=== PATIENT | female | born 1975 | race Caucasian/White ===

== ENCOUNTER 2018-07-30 17:47 | Inpatient (IN) | payer BC ==
[~2018-07-30 17:47] MED LIST: ISOVUE-370 76%-LOCM 1 ML ONE
[2018-07-30 19:05] LABS: #Basophils 0.1 thou/uL (0.0-0.2); #Eosinphils 0.1 thou/uL (0.0-0.7); #Lymphocytes 3.3 thou/uL (1.20-3.40); #Monocytes 0.6 thou/uL (0.11-0.59); #Neutrophils 5.8 thou/uL (1.40-6.50); %Basophils 1.2 % (0.0-1.0); %Eosinophils 0.8 % (0.0-10.0); Hemoglobin 13.8 g/dL (12.0-16.0); Mean Corpuscular HGB CONC 32.9 g/dL (32.0-36.0); Mean Corpuscular Hemoglobin 31.4 pg (27.0-31.0); Mean Corpuscular Volume 95.4 fL (78.0-98.0); Mean Platelet Volume 6.7 fL (7.4-10.4); Platelet Count 345 thou/uL (130-400); RBC Distribution Width 12.2 % (11.5-14.5); Red Blood Cell (RBC) Count 4.38 mill/uL (4.20-5.40); White Blood Cell (WBC) Count 9.8 thou/uL (4.8-10.8)
[2018-07-30 19:33] LABS: ALT (SGPT) 33 U/L (8-55); AST (SGOT) 24 U/L (5-34); Albumin 4.2 g/dL (3.5-5.0); Alkaline Phosphatase 108 U/L (40-150); Anion Gap 12 mmol/L (10-20); BUN (Urea Nitrogen) 10 mg/dL (7.0-18.7); Bilirubin, Total 0.2 mg/dL (0.2-1.2); CK (CPK) 48 U/L (29-168); Calc. Creatinine Clearance 0 mL/min (70-130); Calcium 9.6 mg/dL (7.8-10.44); Carbon Dioxide 25 mmol/L (22-29); Chloride 105 mmol/L (98-107); Estimated GFR-MDRD 71; Globulin 2.9 g/dL (2.4-3.5); Glucose 85 mg/dL (70-105); Lipase 61 U/L (8-78); Protein, Total 7.1 g/dL (6.0-8.3); Sodium 138 mmol/L (136-145)
[2018-07-30] MEDS ORDERED: Ondansetron PF 4 MG/2 ML Vial ONE ×2 (19:35→21:57)
[2018-07-30] MEDS ORDERED: Morphine 4 MG/ML VIAL ONE ×2 (19:35→21:10)
[2018-07-30 19:38] LABS: BHCG - Serum Negative (NEGATIVE); Pregs Control Background? CLEAR/WHITE (CLR/WHITE); Pregs Control Bar Appear? YES (CONTROL BAR)
[2018-07-30 20:00] LABS: Bilirubin Negative (Negative); Blood, Urine Negative (Negative); Clarity CLEAR (Clear); Glucose, Urine (Dipstick) Negative (Negative); Leukocyte Negative (Negative); Nitrite Negative (Negative); Protein, Urine (Dipstick) Negative (Neg-Trace); Specific Gravity, Urine 1.024 (1.002-1.036); Urobilinogen 0.2 mg/dL (0.2-1.0)
[2018-07-30] MEDS ORDERED: metroNIDAZOLE 500 MG/100 ML BAG ONE (21:10)
[2018-07-30] MEDS ORDERED: Dexamethasone 10 MG/ML VIAL ONE (21:10)
--- NOTE | 2018-07-30 21:18 | CT ---
CONTRAST ENHANCED CT IMAGES ABDOMEN AND PELVIS: 07/30/18 IV contrast was given. The lung bases are unremarkable. No evidence of free intraperitoneal air seen. The liver and spleen are unremarkable. The gallbladder has been surgically removed. The pancreas is unremarkable. The adrenal glands unremarkable. The kidneys are unremarkable. The abdominal aorta is unremarkable. Abnormally thickened and inflamed loops of jejunum visualized. T here appears to be some fecal debris in some of these thickened jejunal loops. More distally, the small bowel is unremarkable. The patient has had partial bowel resection at the il eocecal junction. Some thickened and enhancing loops of transverse colon as well as the splenic flexu re is seen. this is compatible with colitis. Additional area of thickening and enhancement seen in th e descending colon, sigmoid colon and rectum. Additional areas of mesenteric lymph node enlargement seen in the upper to mid right abdomen. IMPRESSION: 1. Jejunal thickening compatible with inflammatory change. 2. Areas of colonic enhancement compatible with colitis. POS: NOEL
[2018-07-30] MEDS ORDERED: Sodium Chloride 0.9% 1,000 ML IV SCH (23:45)
[2018-07-30] MEDS ORDERED: Ondansetron ODT 4 MG TAB SL PRN (23:46)
[2018-07-30] MEDS ORDERED: Morphine 4 MG/ML VIAL SLOW IVP PRN (23:47)
[2018-07-31] MEDS ORDERED: Acetaminophen 325 MG TAB PO PRN (01:20)
[2018-07-31] MEDS ORDERED: Acetaminophen 650 MG Suppository PR PRN (01:20)
[2018-07-31] MEDS: Promethazine 25 MG TAB PO PRN ×4 (02:02→22:47)
[2018-07-31] MEDS: Morphine 4 MG/ML VIAL SLOW IVP PRN ×4 (02:02→12:28)
[2018-07-31 02:58] VITALS: BMI 25.5
--- NOTE | 2018-07-31 04:20 | HP ---
REASON FOR ADMISSION: Crohn's flare and colitis. HISTORY OF PRESENT ILLNESS: Ms. Patton is a 43-year-old woman with a background history of Crohn's disease who has undergone bowel resection x2, who presented today complaining of fever and abdominal pain for the last five days. She reports having blood in her stool. She was seen at an urgent care center on Thursday and workup was unremarkable. The patient states that it has been quite sometime since the last time she had a flare of her Crohn's. She states typically her pain is difficult to control as is her nausea. She has felt nauseous for few days and denies having any vomiting. She states it is unusual for her to vomit and at times she will experience dry heaving. She states the pain is diffuse throughout her entire abdomen and she rates her pain as 8/10 in severity when she first came in. At this present time, her pain is approximately 6/10 in severity. She states her abdomen feels bloated. 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 Labs and urinalysis done in ED were unremarkable. CT of the abdomen did confirm the presence of colitis. She was therefore started on Levaquin and metronidazole as well as Decadron. She has been receiving IV fluids. For her pain, she was given 4 mg of morphine. REVIEW OF SYSTEMS: The patient again states she has felt very warm. She denies having any chills or night sweats. Reports having occasional blood in her stools as mentioned above. She states she often suffers from loose stools and states that she tends to have postprandial diarrhea at baseline. She denies having any chest pain, palpitations, or shortness of breath. No skin changes. No urinary symptoms. She does complain of headache and states that she suffers from migraines. No visual disturbances or speech disturbances. PAST MEDICAL HISTORY: 1. Crohn's. 2. Herniated disks. 3. Anxiety. FAMILY HISTORY:Reviewed and no contributory for current presentation. PAST SURGICAL HISTORY: 1. Small-bowel resection x2. 2. Mass removed from the right breast. 3. Mass removed from urethra. 4. Right knee surgery. 5. Hysterectomy. ALLERGIES: IMITREX. PATIENT STATES IT TENDS TO MAKE HER MIGRAINES WORSE. CURRENT MEDICATIONS: 1. Zofran ODT. 2. Methocarbamol 750 mg two times a day. 3. Lexapro 20 mg once daily. 4. Lorazepam 0.5 mg every evening. 5. Tramadol 50 to 100 mg p.o. as needed. PHYSICAL EXAMINATION: GENERAL: The patient appears well developed, well nourished and appears to be in mild discomfort. VITAL SIGNS: Temperature 98.1, pulse 88, respirations 18, blood pressure 119/76 , and O2 saturation 96% on room air. HEENT: Normocephalic and atraumatic. Pupils are equal, round, and reactive to light. Sclerae without icterus. Oropharynx is clear. NECK: Supple without lymphadenopathy. Full range of motion. CARDIAC: Regular rate and rhythm. LUNGS: Clear to auscultation, without wheezes, rales, or rhonchi. ABDOMEN: Soft, but tender with mild percussion all throughout. No rigidity or guarding. EXTREMITIES: No swelling, edema, or calf tenderness. LABORATORY DATA: White blood count 9.8, hemoglobin 13.8, and platelets 345. Sodium 138, potassium 4.0, BUN 10, creatinine 0.87, and GFR 71. LFTs are unremarkable. Lactic acid 1. Lipase 61. Serum negative. Urinalysis unremarkable. IMAGING DATA: Jejunal thickening compatible with inflammatory change. Areas of colonic enhancement compatible with colitis. IMPRESSION AND PLAN: Ms. Patton is a pleasant 43-year-old woman with a history of Crohn's, who has undergone small bowel resections in the past, and is being admitted for Crohn's flare and CT confirmed colitis. We will continue IV antibiotics and IV hydration. We will also give prednisone 40 mg daily. Consult placed to Gastroenterology for further recommendations. At this present time, the patient complains of 6/10 pain. We will give morphine 2 mg IV q.2 hours as needed for pain. For her nausea, the patient states she tends to respond to Zofran and Phenergan , which have been prescribed. For deep venous thrombosis prophylaxis, we will place mechanical SCDs. We will hold any anticoagulation given recent bloody stools. Patient's case was discussed with Dr. Taveras, who agrees with the plan of care as described above. Case discussed with DION, agree with assessment and plan. Job ID: [id number] [facility]
[2018-07-31] MEDS: Sodium Chloride 0.9% 1,000 ML IV SCH ×2 (04:50→08:40)
[2018-07-31] MEDS: metroNIDAZOLE 500 MG in Premix Bag 1 BAG IVPB SCH ×3 (05:01→22:47)
[2018-07-31 07:27] LABS: #Lymphocytes 1.2 thou/uL (1.20-3.40); #Monocytes 0.1 thou/uL (0.11-0.59); #Neutrophils 7.8 thou/uL (1.40-6.50); %Basophils 0.2 % (0.0-1.0); %Lymphocytes 13.1 % (21.0-51.0); %Monocytes 0.8 % (0.0-10.0); %Neutrophils 85.9 % (42.0-75.0); Hemoglobin 12.5 g/dL (12.0-16.0); Mean Corpuscular HGB CONC 33.7 g/dL (32.0-36.0); Mean Corpuscular Hemoglobin 31.9 pg (27.0-31.0); Mean Corpuscular Volume 94.7 fL (78.0-98.0); Mean Platelet Volume 6.7 fL (7.4-10.4); Platelet Count 295 thou/uL (130-400); RBC Distribution Width 12.1 % (11.5-14.5); Red Blood Cell (RBC) Count 3.91 mill/uL (4.20-5.40); White Blood Cell (WBC) Count 9.1 thou/uL (4.8-10.8)
[2018-07-31 07:45] LABS: Anion Gap 11 mmol/L (10-20); BUN (Urea Nitrogen) 8 mg/dL (7.0-18.7); Calc. Creatinine Clearance 118 mL/min (70-130); Calcium 8.9 mg/dL (7.8-10.44); Carbon Dioxide 23 mmol/L (22-29); Chloride 106 mmol/L (98-107); Estimated GFR-MDRD 89; Glucose 118 mg/dL (70-105); Potassium 4.3 mmol/L (3.5-5.1); Sodium 136 mmol/L (136-145)
[2018-07-31] MEDS: Dicyclomine 10 MG/5 ML UDCUP PO SCH ×4 (08:36→21:03)
[2018-07-31] MEDS: predniSONE 20 MG TAB PO SCH ×2 (08:37→15:56)
[2018-07-31] MEDS: Famotidine/PF 20 mg/2ml Vial SLOW IVP SCH ×2 (08:40→21:05)
[2018-07-31] MEDS: Ondansetron PF 4 MG/2 ML Vial IVP PRN ×2 (08:49→18:11)
[2018-07-31] MEDS ORDERED: FLUoxetine HCl 20 MG CAP PO SCH (09:00)
[2018-07-31] MEDS ORDERED: azaTHIOprine 50 MG TAB PO SCH (09:00)
[2018-07-31] MEDS ORDERED: methylPREDNISolone Sod Succ 40 MG VIAL IVP SCH (12:30)
--- NOTE | 2018-07-31 12:59 | PRG ---
DATE OF SERVICE: 07/31/2018 SUBJECTIVE: The patient is seen and examined at bedside. She has abdominal pain, which is rated at 7 at the time of my visit. No nausea. No vomiting. Also, she has neck pain, which is chronic. Apparently, she had some injections done by Pain Management doctor a month ago and she developed additional numbness in this area and the pain is quite substantial. OBJECTIVE: VITAL SIGNS: Blood pressure is 114/64, pulse is 62, temperature is 98.1, respiratory rate is 18, O2 saturation is 99% on room air. HEENT: Her pupils are responding to light properly. Sclerae are nonicteric. Oral mucosa is moist. LUNGS: Clear. HEART: S1, S2 normal. ABDOMEN: Soft. Tender to palpation, mostly on the right side and in the center. Bowel sounds are present. No organomegaly. EXTREMITIES: No clubbing, cyanosis, or edema. NEUROLOGIC: She is alert and oriented x4. There is no any motor or sensory deficits. Cranial nerves are intact. LABORATORY DATA: Showed white count of 9.1, hemoglobin 12.5, hematocrit 37.0, platelet count is 295,000. Electrolytes within normal limits. BUN 8, creatinine 0.71, glucose 118, and calcium 8.9. Microbiology showed no growth x2 blood cultures. IMPRESSION: 1. Abdominal pain with positive CT findings for inflammatory process, which is most likely exacerbation of her Crohn disease since she has a history of the diagnosis. 2. Neck pain secondary to herniated discs, status post injections by Pain Management MD. 3. Anxiety. PLAN: Plan is to switch her from morphine to fentanyl 50 mcg every 4 hours p.r.n. as needed. Discontinue morphine. Start Solu-Medrol 40 every 6 hours. GI software sales consultant was called and he is on his way to see the patient. He will make decision about further management of her case. Also, we are going to restart her home medications, which is methocarbamol. We will continue metronidazole and levofloxacin. Job ID: [id number]
[2018-07-31] MEDS: Fentanyl 100 MCG/2 ML VIAL SLOW IVP PRN ×3 (15:46→21:15)
[2018-07-31] MEDS: methylPREDNISolone Sod Succ 40 MG VIAL IVP SCH (15:54)
[2018-07-31] MEDS: Methocarbamol 500 MG TAB PO SCH (21:04)
[2018-08-01] MEDS: methylPREDNISolone Sod Succ 40 MG VIAL IVP SCH ×5 (00:40→23:48)
[2018-08-01] MEDS: Sodium Chloride 0.9% 1,000 ML IV SCH ×3 (00:41→23:46)
[2018-08-01] MEDS: Fentanyl 100 MCG/2 ML VIAL SLOW IVP PRN ×7 (02:43→23:50)
[2018-08-01] MEDS: Ondansetron PF 4 MG/2 ML Vial IVP PRN ×3 (03:03→20:11)
[2018-08-01] MEDS: metroNIDAZOLE 500 MG in Premix Bag 1 BAG IVPB SCH ×3 (06:09→22:57)
[2018-08-01] MEDS: Dicyclomine 10 MG/5 ML UDCUP PO SCH ×2 (08:41→11:16)
[2018-08-01] MEDS: Methocarbamol 500 MG TAB PO SCH ×2 (08:41→19:47)
[2018-08-01] MEDS: Famotidine/PF 20 mg/2ml Vial SLOW IVP SCH (08:41)
--- NOTE | 2018-08-01 10:30 | PRG ---
DATE OF SERVICE: 08/01/2018 SUBJECTIVE: The patient was seen and examined at the bedside. She had some full liquid diet last night and having more abdominal pain after that. She is waiting for breakfast as we speak. No nausea. No vomiting. OBJECTIVE: VITAL SIGNS: Blood pressure is 111/64, temperature 98.2, pulse 62, respirations 16, O2 saturation is 97% on room air. HEENT: Head is atraumatic and normocephalic. Eyes are PERRLA. Sclerae are nonicteric. Oral mucosa is slightly dry. NECK: Supple. LUNGS: Clear. HEART: S1, S2 normal. No S3. No S4. No any murmur. ABDOMEN: Soft, but tender on palpation mostly in the right side of the abdomen and in the lower parts. No guarding. No masses. EXTREMITIES: No clubbing, cyanosis, or edema. NEUROLOGICAL: She is alert and oriented x4. There is no any motor or sensory deficits present. Cranial nerves are intact. LABORATORY DATA: None today. IMPRESSION: 1. Abdominal pain with positive CT findings for inflammatory process, suspected Crohn disease exacerbation. 2. Neck pain secondary to herniated discs, status post injections by Pain Management MD. 3. Anxiety. DISCUSSION: The patient is doing better in terms of pain control. She is on fentanyl IV push now every 4 hours. She is on Solu-Medrol 40 every 6 hours. She was seen by Dr. Jang for GI consultation. We are waiting for the report from his visit. We will continue her both antibiotics metronidazole and levofloxacin and continue IV fluids and keep her on full liquid diet. Job ID: [id number]
[2018-08-01] MEDS: Promethazine 25 MG TAB PO PRN ×2 (11:17→17:41)
[2018-08-01] MEDS ORDERED: Hyoscyamine Sulfate SL 0.125 mg Tablet SL PRN (14:36)
[2018-08-01] MEDS ORDERED: Sodium Chloride 0.9% (PF) 10 ML VIAL FS PRN (14:46)
--- NOTE | 2018-08-01 14:56 | PRG ---
DATE OF SERVICE: 08/01/2018 SUBJECTIVE: Ms. Patton states her diarrhea is better. She denies any bleeding since yesterday, but she still has upper abdominal pain. Nurses note she requests IV pain injections. She reports the Bentyl, she is taking, but it taste really bad. She asked when she can go home. MEDICATIONS: 1. Tylenol p.r.n. 2. Bentyl p.r.n. 3. Pepcid. 4. Fentanyl p.r.n. 5. Levofloxacin. 6. Robaxin. 7. Solu-Medrol 40 mg IV q.6. 8. Flagyl 500 IV q.8h. 9. Zofran p.r.n. 10. Phenergan p.r.n. 11. Normal saline at 100. OBJECTIVE: VITAL SIGNS: Temperature is 98.2. She has been afebrile since admission. Pulse is 62, blood pressure is 111/64. GENERAL: She is resting in bed. She is tearful at times. HEENT: Oropharynx is without lesions. NECK: Supple. No adenopathy. LUNGS: Clear. HEART: Regular rate and rhythm. No rubs, clicks, or murmurs. ABDOMEN: Soft. She has some voluntary guarding, but no rebound. Bowel sounds are positive. EXTREMITIES: No clubbing, cyanosis, or edema. Blood cultures 07/30/2018, negative x2. No CBC today. No BMP today. ASSESSMENT: Jejunal inflammation and possibly some proximal colon inflammation. This could be enteritis as she had a sick relative or could be Crohn's. RECOMMENDATIONS: 1. Continue antibiotics and steroids. 2. We will check CBC labs and inflammatory markers tomorrow. If these are improving, I would stop the antibiotics. 3. Wean off her narcotics. These are not appropriate for abdominal pain with inflammatory bowel disease unless something surgical amiss which there is not in the setting and we will put her on some Levsin sublingual instead of Bentyl. I will follow along with you. Job ID: [id number]
[2018-08-01] MEDS ORDERED: Ondansetron ODT 4 MG TAB SL PRN (19:13)
--- NOTE | 2018-08-01 19:27 | CON ---
DATE OF CONSULTATION: 07/31/2018 REASON FOR CONSULTATION: This is requested by the hospitalist admitting service, Dr. Hannah, who is attending now in management of Crohn disease, acute exacerbation of pain and bleeding. HISTORY OF PRESENT ILLNESS: Ms. Patton is a 43-year-old female, who was admitted to the hospital at 3 o'clock this morning. She apparently presented to the hospital yesterday at around 6:00 p.m. because she was having abdominal pain, fever, and history of Crohn disease. She reports that about a week ago, she became sick with some sore throat, a little bit of nausea and fever. At that time, she is having no diarrhea. She had a sick grandchild, who had a GI illness that she thought She ultimately went over to the [facility] in [place], where she had tested for the flu and strep and this was negative. As her symptoms seemed to progress daily and begin to have more GI symptoms, she began to worry this is her Crohn disease. She began to have colicky cramping almost like contractions and then some diarrhea and nausea, she had a little bit of rectal bleeding as well. Ultimately, the pain got worse and worse. She decided to come to the emergency room. She did not check her temperature at home, but reports subjective fever. Additionally, she notes typically when her Crohn disease flare, she will get a little bit of redness and inflammation in her eye on the right side, which she has noted and also she will get some little punctate red spots on her skin and on her arms that she is noted. Presently, she is resting in bed. She is n.p.o. She has had imaging, was given Levaquin, metronidazole, Flagyl, morphine, one dose of Decadron, 1 L of fluids, and some morphine in the emergency room. Presently, she is being Pepcid, Levaquin, Flagyl, Robaxin, Solu-Medrol 40 IV q.6, Zofran, and Bentyl. PAST MEDICAL HISTORY: Chronic back pain, neck pain, Crohn disease. She reports she was diagnosed about 2002. She has been cared by Dr. Odom here locally, mainly disease in the distal ileum, but there was also some concern of proximal colon involvement and even small bowel involved in the past per the patient. For a long time, she was on Remicade, but then she working as well, she was getting alopecia. She started on Cimzia, but that gave her rash. She notes that at some point in time, she was started on Humira and that was last time she was in the hospital here in 2012. Ultimately, she states she was sent to see Dr. Brandyn Almonte in [place], [place], where she underwent bowel resection, small intestine. She thinks this may have been her jejunum, but she is not certain. After that, she was on Entyvio until April 2017. Apparently, she was being treated by Dr. Almonte in [place] when she became employed at [employer], she had to go see the gastrologist in [place] sometime in late 2016, her job is changed again and she has not been back to see them. She estimates she has not been on any medications since then. She reportedly had no flares since then. Past medical history otherwise, anxiety. PAST SURGICAL HISTORY: Small bowel resection x2, benign mass removed from right breast, benign mass from urethra, knee surgery, and hysterectomy. She had injections in her C3-C4 of the neck and also nerve ablation there recently. ALLERGIES: IMITREX, METAXALONE, AND SUMATRIPTAN. MEDICATIONS: At home: 1. Zofran ODT. 2. Methocarbamol. 3. Lexapro. 4. Lorazepam. 5. Tramadol. Present medications in the hospital: 1. Acetaminophen. 2. Imuran, it has been discontinued actually. 3. Bentyl. 4. Pepcid. 5. Fentanyl p.r.n. 6. Levofloxacin. 7. Methocarbamol. 8. Methylprednisolone 40 IV q.6. 9. Flagyl 500 IV q.8. 10. P.r.n. morphine. 11. Sodium chloride . 12. P.r.n. Zofran. 13. P.r.n. Phenergan. REVIEW OF SYSTEMS: CONSTITUTIONAL: No chills or night sweats. Occasional blood in the stool this morning. Tendency towards postprandial diarrhea. Extraintestinal manifestations of Crohn disease as per HPI. No history of recent melena, hematemesis, fever, or specific joint pains. No history of liver disease. She does have history of migraines. No chest pain, shortness of breath, or dyspnea on exertion. NEUROLOGIC: Negative. RESPIRATORY: Negative. : Negative. BLUNGER: Negative. SOCIAL HISTORY: She employed here at [employer]. She does not drink. She does not smoke and has not smoked in the past. PHYSICAL EXAMINATION: VITAL SIGNS: Temperature is 98.1. She has been afebrile since admission. Pulse is 62 and blood pressure 114/64. GENERAL: The patient is resting comfortably in bed. She is in no distress. She would relate pertinent facts for history. HEENT: Conjunctivae are clear. Oropharynx without lesions. NECK: Supple. No adenopathy. LUNGS: Clear. HEART: Regular rate and rhythm. No rubs, gallops, or murmurs. ABDOMEN: Soft. Some mild tenderness diffusely, but no rebound. No guarding. No hernias were noted. EXTREMITIES: No clubbing, cyanosis, or edema. SKIN: Without rashes or lesions. NEUROLOGIC: Grossly intact. LABORATORY DATA: White count 9.1, that was 9.8 last night. Hemoglobin is 12.5, platelet count 295. Comprehensive metabolic profile is normal on 07/30/2018. Urinalysis was negative on 07/30/2018. Blood cultures are pending. The stool studies are present. CT scan of the abdomen and pelvis performed 07/30/2018, showed jejunal thickening, nonspecific inflammation, some areas of colonic enhancement consistent with colitis, transverse colon, as well as splenic flexure region. I have reviewed these films personally. ASSESSMENT: History of Crohn disease with no medications for over a year in the past. She had become refractory to Remicade and had reactions to Cimzia and Humira. She underwent a surgery in [place] and then with 2 years of bowel resected and then she was placed on Entyvio. She reports it over the last few weeks, but it seems that since she has been stop seeing the gastrologist at [employer] in [place], where she transferred her care and she began to work for them, that she has been doing pretty well because she has not been on any medications since April 2017 by her report. Now, she has had exacerbation of fever, some URI symptoms followed by some diarrhea and abdominal pain, which brought her to the emergency room. She has some possible thickening in her proximal jejunum with no signs of obstruction and it was reportedly some questionable transverse colon thickening and possibly some mild thickening in the splenic flexure. There is no stranding of fat in these areas. There is no pericolonic fat stranding or inflammation. The anastomosis of the colon, ileum does not appear acutely inflamed. There is no free pelvic fluid. Differential diagnosis would include gastroenteritis or viral, exacerbation of her Crohn disease. RECOMMENDATIONS: At this time, I agree with antibiotics and steroids. I will go and get some stool studies on her. We will continue to observe her with you. We are going to place her on clear liquids. Job ID: [id number]
[2018-08-01] MEDS ORDERED: Enoxaparin Sodium 30 MG/0.3 ML SYRINGE SC SCH (21:00)
[2018-08-02] MEDS: metroNIDAZOLE 500 MG in Premix Bag 1 BAG IVPB SCH (05:44)
[2018-08-02] MEDS: methylPREDNISolone Sod Succ 40 MG VIAL IVP SCH ×2 (05:45→12:38)
[2018-08-02] MEDS: Ondansetron PF 4 MG/2 ML Vial IVP PRN (05:50)
[2018-08-02] MEDS: Sodium Chloride 0.9% 1,000 ML IV SCH ×2 (07:00→12:53)
[2018-08-02 08:08] VITALS: BP 130/79; TEMP 98
[2018-08-02 08:08] LABS: #Lymphocytes 1.2 thou/uL (1.20-3.40); #Monocytes 0.3 thou/uL (0.11-0.59); #Neutrophils 11.8 thou/uL (1.40-6.50); %Basophils 0.1 % (0.0-1.0); %Eosinophils 0.2 % (0.0-10.0); %Lymphocytes 9.2 % (21.0-51.0); %Monocytes 2.3 % (0.0-10.0); %Neutrophils 88.3 % (42.0-75.0); Hemoglobin 11.7 g/dL (12.0-16.0); Mean Corpuscular HGB CONC 32.4 g/dL (32.0-36.0); Mean Corpuscular Hemoglobin 31.1 pg (27.0-31.0); Mean Corpuscular Volume 95.9 fL (78.0-98.0); Platelet Count 298 thou/uL (130-400); RBC Distribution Width 12.3 % (11.5-14.5); Red Blood Cell (RBC) Count 3.77 mill/uL (4.20-5.40); White Blood Cell (WBC) Count 13.4 thou/uL (4.8-10.8)
[2018-08-02 08:24] LABS: Anion Gap 11 mmol/L (10-20); BUN (Urea Nitrogen) 9 mg/dL (7.0-18.7); CRP (Inflammatory) Less than 0.50 mg/dL (= or < 0.5); Calc. Creatinine Clearance 109 mL/min (70-130); Calcium 9.1 mg/dL (7.8-10.44); Carbon Dioxide 27 mmol/L (22-29); Chloride 106 mmol/L (98-107); Estimated GFR-MDRD 81; Glucose 123 mg/dL (70-105); Magnesium 1.9 mg/dL (1.6-2.6); Phosphorus 3.6 mg/dL (2.3-4.7); Potassium 3.8 mmol/L (3.5-5.1); Sodium 140 mmol/L (136-145)
[2018-08-02] MEDS ORDERED: Pantoprazole 40 MG VIAL IVP SCH (09:00)
[2018-08-02] MEDS: Methocarbamol 500 MG TAB PO SCH (09:23)
--- NOTE | 2018-08-02 11:20 | PRG ---
DATE OF SERVICE: 08/02/2018 SUBJECTIVE: The patient is seen and examined at the bedside. She complains about some abdominal pain. She was placed back on her clear liquids since she had some abdominal pain increase with full liquid diet. OBJECTIVE: VITAL SIGNS: Blood pressure is 130/79, pulse is 50, temperature is 98.0, respiratory rate is 16, O2 saturation is 97% on room air. HEENT: Head is atraumatic and normocephalic. Eyes are PERRLA. Sclerae are nonicteric. Oral mucosa is somewhat dry. NECK: Supple. LUNGS: Clear. HEART: S1, S2 normal. No S3. No S4. No any murmur. ABDOMEN: Relatively soft and there is some tenderness on deeper palpation in the mid portion of the right side of the abdomen. No guarding. No masses. EXTREMITIES: No clubbing, cyanosis, or edema. NEUROLOGICAL: She is alert and oriented x4. There is no any motor or sensory deficits present. Cranial nerves are intact. LABORATORY DATA: Labs showed white count of 13.4, hemoglobin 11.7, hematocrit 36.2, platelet count is 298,000. Normal electrolytes. BUN of 9, creatinine 0.77, CO2 27, glucose 123, CRP less than 0.5. Microbiology, blood cultures x2 negative at 48 hours. ASSESSMENT: 1. Crohn disease exacerbation. 2. Neck pain secondary to herniated disks, status post injections by pain management MD. 3. Anxiety. DISCUSSION: The patient's CRP came back low. Per GI recommendation, we are going to stop her both metronidazole and levofloxacin and we will stop her fentanyl. We will continue her IV steroids and she will stay on clear liquids for now until GI makes decision about advancing the diet. Job ID: [id number]
[2018-08-02] MEDS ORDERED: Escitalopram Oxalate 20 mg Tablet PO SCH ×2 (12:15→12:30)
[2018-08-02] MEDS: Promethazine 25 MG TAB PO PRN (12:38)
[2018-08-02] MEDS ORDERED: Lorazepam 0.5 MG TAB PO PRN (13:10)
--- NOTE | 2018-08-02 16:06 | PRG ---
DATE OF SERVICE: SUBJECTIVE: Ms. Patton is feeling better. Dr. Hannah restarted her escitalopram. She was tearful today and I noticed that yesterday as well. She is tolerating full liquids and really wants to go home. OBJECTIVE: VITAL SIGNS: She is afebrile. Vital signs had been stable. HEENT: Oropharynx, without lesions. There are no signs of thrush. LUNGS: Clear. HEART: Regular rate and rhythm. ABDOMEN: Soft and nontender. There is no rebound or guarding. LABORATORY DATA: White count 13.4, hemoglobin 11.7, and platelet count 298. Basic metabolic profile normal. CRP is less than 0.5. Sedimentation rate is 2. ASSESSMENT: 1. Admission with abdominal pain and some mild inflammation of the proximal jejunum and also proximal colon around her anastomosis. Now, after 3 days of IV steroids, symptoms markedly improved. She wants to go home today. I think that is not unreasonable. I have recommended a low-residue diet, steroid taper, and follow up with Dr. Odom, we have made her appointment. To return to the office on 08/18 to discuss reinstituting therapy she has been off for about a year and half probably needs to be on biologic therapy in light of previous surgical needs. She is agreeable to this plan. 2. Depression. She has been off her escitalopram, pretty tearful yesterday and today, Dr. Hannah restarted that today and this is probably going to help her a lot as well. We will plan steroid taper as directed. Follow up as noted above with Dr. Odom in about 2 weeks. Job ID: [id number]
[2018-08-02] MEDS ORDERED: Lorazepam 0.5 MG TAB PO SCH (21:00)
[2018-08-03] MEDS ORDERED: Escitalopram Oxalate 20 mg Tablet PO SCH ×2 (09:00)
--- NOTE | 2018-08-03 13:11 | DIS ---
DATE OF ADMISSION: 07/30/2018 DATE OF DISCHARGE: 08/02/2018 FINAL DIAGNOSES: 1. Abdominal pain, most likely secondary to Crohn disease exacerbation. 2. Neck pain secondary to herniated disk, status post injections by Pain Management MD. 3. Anxiety. 4. Depression. CONSULTANTS: Dr. Chirag Jang of Gastroenterology Service. HOSPITAL COURSE: The patient is a 43-year-old female with a background history of Crohn disease and bowel resection x2, who presented to the emergency room complaining of fever and abdominal pain for approximately 5 days prior to this admission. She reported having some blood in her stool. She was nauseated, but she did not have any vomiting. She had abdominal pain in a diffuse fashion throughout her entire abdomen and the pain was rated at 8 on a scale from 1-10 in severity. She felt bloated. A lab work and urinalysis were done in the emergency department were unremarkable. CT of the abdomen did confirm the presence of colitis. She was therefore started on Levaquin and metronidazole as well as on steroids IV along with IV fluids. She was given morphine and got admitted to the medical floor for further management of her pain and inflammatory process. The patient was seen by Dr. Jang for Gastroenterology evaluation, who recommended to continue IV steroids and antibiotics. She was kept on clear liquids, and once the diet was advanced to full liquid diet, she developed more pain and so we had to go back to clear liquids. She gradually felt better. Her CRP came back at 8.5. Her blood cultures x2 came back negative. Both antibiotics were stopped. She requested to go home. She was cleared by Dr. Jang for her to go home. She was discharged home in good condition with recommendation to stay on diet as tolerated and activities as tolerated. MEDICATIONS: At the time of discharge, 1. Prednisone tapering dose. 2. Lorazepam 0.5 mg at bedtime. 3. Lexapro 20 mg daily. 4. Zofran p.r.n. 5. Pantoprazole 40 mg daily. 6. Levsin 0.125 mg sublingual every 6 hours p.r.n. as needed. 7. Methocarbamol 750 mg twice a day. 8. Tramadol 25 mg q.i.d. p.r.n. She is scheduled to see Dr. Odom in the next 2 weeks. DESTINATION: Home. Job ID: [id number]
== END 2018-08-02 17:37 | disposition home or self-care (01) | DRG 387 ==
LOC: ERS 17:47 → T4-A 20:41
PROVIDERS: ADMIT Hospitalist; ATTEND Hospitalist
DX: K50.80 Crohn's disease of both small and large intestine without complications (principal); F41.9 Anxiety disorder, unspecified; M50.20 Other cervical disc displacement, unspecified cervical region; G89.29 Other chronic pain; F32.9 Major depressive disorder, single episode, unspecified; Z90.49 Acquired absence of other specified parts of digestive tract; Z98.890 Other specified postprocedural states; Z88.8 Allergy status to other drugs, medicaments and biological substances; Z90.710 Acquired absence of both cervix and uterus
CPT/HCPCS: 36415; 74177; 80048; 80053; 81003; 82550; 83605; 83690; 83735; 84100; 84703; 85025; 85652; 86140; 86850; 86900; 86901; 87040; 96361; 96365; 96375; 96376; C9113; J1100; J1650; J1956; J2270; J2405; J2920; J3010; J7500; Q0169; Q9966; S0028

== ENCOUNTER 2018-09-20 21:16 | Inpatient (IN) | payer BC ==
[2018-09-20 21:58] LABS: Bilirubin Negative (Negative); Blood, Urine Negative (Negative); Clarity CLEAR (Clear); Glucose, Urine (Dipstick) Negative (Negative); Leukocyte Negative (Negative); Nitrite Negative (Negative); Protein, Urine (Dipstick) Negative (Neg-Trace); Specific Gravity, Urine 1.013 (1.002-1.036); Urobilinogen 0.2 mg/dL (0.2-1.0); pH, Urine 5.5 (5.0-9.0)
[2018-09-20 22:14] LABS: #Lymphocytes 2.5 thou/uL (1.20-3.40); #Monocytes 0.5 thou/uL (0.11-0.59); %Eosinophils 0.1 % (0.0-10.0); %Lymphocytes 15.7 % (21.0-51.0); %Monocytes 3.3 % (0.0-10.0); %Neutrophils 80.8 % (42.0-75.0); Hemoglobin 13.7 g/dL (12.0-16.0); Mean Corpuscular HGB CONC 32.8 g/dL (32.0-36.0); Mean Corpuscular Volume 94.5 fL (78.0-98.0); Platelet Count 353 thou/uL (130-400); RBC Distribution Width 12.2 % (11.5-14.5); Red Blood Cell (RBC) Count 4.43 mill/uL (4.20-5.40)
[2018-09-20 22:37] LABS: ALT (SGPT) 21 U/L (8-55); AST (SGOT) 16 U/L (5-34); Albumin 4.3 g/dL (3.5-5.0); Alkaline Phosphatase 80 U/L (40-150); Anion Gap 14 mmol/L (10-20); BUN (Urea Nitrogen) 8 mg/dL (7.0-18.7); Bilirubin, Total 0.4 mg/dL (0.2-1.2); Calc. Creatinine Clearance 0 mL/min (70-130); Calcium 9.8 mg/dL (7.8-10.44); Carbon Dioxide 20 mmol/L (22-29); Chloride 105 mmol/L (98-107); Estimated GFR-MDRD 81; Globulin 2.8 g/dL (2.4-3.5); Glucose 91 mg/dL (70-105); Potassium 3.7 mmol/L (3.5-5.1); Protein, Total 7.1 g/dL (6.0-8.3); Sodium 135 mmol/L (136-145)
[2018-09-21 02:02] LABS: BHCG - Serum Negative (NEGATIVE); Pregs Control Background? CLEAR/WHITE (CLR/WHITE); Pregs Control Bar Appear? YES (CONTROL BAR)
[2018-09-21] MEDS ORDERED: Morphine 4 MG/ML VIAL ONE ×2 (02:28→03:34)
[2018-09-21] MEDS ORDERED: Ondansetron PF 4 MG/2 ML Vial ONE (02:28)
[2018-09-21] MEDS ORDERED: methylPREDNISolone Sod Succ/PF 125 MG/2 ML VIAL ONE (03:10)
[2018-09-21] MEDS ORDERED: Acetaminophen 325 MG TAB PO PRN (04:23)
[2018-09-21] MEDS ORDERED: Ondansetron ODT 4 MG TAB PO PRN (04:23)
[2018-09-21] MEDS ORDERED: HYDROcodone/Acetaminophen 7.5/325 mg Tablet PO PRN (04:31)
[2018-09-21] MEDS ORDERED: diphenhydrAMINE 50 MG/ML VIAL ONE (04:58)
--- NOTE | 2018-09-21 05:24 | HP ---
CHIEF COMPLAINT: Abdominal pain. HISTORY OF PRESENT ILLNESS: This patient is a 43-year-old female with a history of Crohn disease, presently being followed by Mahnaz Odom. The patient was admitted to this facility on June 01 with what appeared to be a Crohn disease flare. She was subsequently discharged from the hospital after receiving several days of IV steroids. She was continued on p.o. steroid taper, but continued to have some symptoms. She followed up with Dr. Odom and had C diff studies performed on the that ultimately turned out to be positive. She was subsequently then started on vancomycin, which she has now been on since August 30. She has not had a substantial improvement. Reports that she has had blood in her stool intermittently for the last 2 weeks, but over the past several days, it has been every time she has mucus bile and undigested food particles within her stools. On the day presentation, the patient had a bowel movement that she reports it was completely bright red blood and she has not had a bowel movement since, which is unusual for her. She reports that she has had diffuse abdominal pain, which has become fairly severe, it is in the left lower quadrant and the right abdomen, which radiates to the back. She has constant nausea and subjective fever, but it is not an objective fever at this time. REVIEW OF SYSTEMS: The patient reports that she has good appetite being on the prednisone, but typically has avoided eating because anything that she takes in by mouth will ultimately stimulate abdominal pain and diarrhea. All other systems were reviewed, all pertinent positives and negatives noted in the history of present illness. PAST MEDICAL HISTORY: Notable for the above-mentioned Crohn disease. She has had herniated disk, anxiety and depression. PAST SURGICAL HISTORY: Bowel resection x2, mass removed from the right breast, mass removed from the urethra, right knee surgery, hysterectomy. FAMILY HISTORY: Reviewed and noncontributory. SOCIAL HISTORY: The patient is a nonsmoker, nondrinker. She is . She is full code, and her or her mother would be her surrogate decision makers should that become necessary. ALLERGIES: SKELAXIN, COMPAZINE, IMITREX. MEDICATIONS: 1. Escitalopram 20 mg daily. 2. Levsin p.r.n. 3. Zofran p.r.n. 4. Prednisone 40 mg daily. 5. Oral vancomycin. 6. Gabapentin 600 mg t.i.d. PHYSICAL EXAMINATION: VITAL SIGNS: Blood pressure 154/95, pulse 64, respirations 16, O2 saturation 100% on room air. Pain was rated as 8/10. GENERAL APPEARANCE: Age-appropriate female. She is in no distress. She is awake, alert, oriented, pleasant, and cooperative. HEENT: PERRL. No acute lesions. She does have some dermatitis developing at the creases of the mouth. NECK: Supple and symmetric with no lymphadenopathy, JVD, or carotid bruits. HEART: Regular rate and rhythm without murmurs, gallops, or rubs. LUNGS: Clear to auscultation bilaterally with good chest wall expansion and air exchange. ABDOMEN: Soft, nondistended. She is significantly tender in the right abdomen, especially in the right upper quadrant area and the left lower quadrant area. She does have bowel sounds present, which are actually hyperactive. She has some modest voluntary guarding. EXTREMITIES: No cyanosis, clubbing, or edema. SKIN: Warm and dry. LABORATORY DATA: White count 16.0, hemoglobin 13.7, platelets 353. Sodium 135, potassium 3.7, chloride 105, CO2 is 20, BUN is 8, creatinine is 0.77. AST 16, ALT 21, CRP less than 50, albumin 4.3, lipase 59. IMAGING STUDIES: CT abdomen and pelvis, official results are pending. Initial results indicate no evidence of significant inflammatory changes of the bowel. IMPRESSION AND PLAN: 1. Crohn flare with abdominal pain and hematochezia. The case was discussed with Dr. Guzman, on-call, who requests the patient be admitted for more aggressive pain management and IV steroids. We will admit the patient with morphine and IV Solu-Medrol. Consult GI. The patient reports that she has been on several biologics and has had either adverse reactions to them or developed antibodies fairly quickly. We will defer any more aggressive treatment choices to GI. 2. Nausea. Continue with p.r.n. antiemetics. 3. History of depression. Continue with the Lexapro. Job ID: [id number]
--- NOTE | 2018-09-21 07:37 | CT ---
PRELIMINARY REPORT/[facility]/EMERGENCY AFTER HOURS PROCEDURE: EXAM: CT Abdomen and Pelvis With Contrast EXAM DATE/TIME: 09/21/2018 1:46 AM CLINICAL HISTORY: 43 years old, female; Abdominal pain; Generalized; Prior surgery; Patient HX: 43 y/o F, with h/o of Crohn's disease and c. Diff, presents to ED C/O abd pain. PT seen in ED on 07/30, followed by [facility] for c. Diff. PT reports she has been taking prednisone and vanc since her discharge from the hospital . Abd pain associated with subjective fever, back pain, stool changes. Surgical HX of colon resection o f small intestine, mass removed off urethra. Surgical history of hysterectomy. TECHNIQUE: Imaging protocol: Axial computed tomography images of the abdomen and pelvis with intravenous contrast. Coronal reformatted images were created and reviewed. COMPARISON: No relevant prior studies available. FINDINGS: ABDOMEN: Liver: No mass. Gallbladder and bile ducts: Surgical changes of cholecystectomy. No ductal dilation. Pancreas: No mass or ductal dilation. Spleen: No mass. Adrenals: No mass. Kidneys and ureters: No enhancing mass or hydronephrosis. Stomach and bowel: Surgical sutures around the proximal ascending colon. No bowel dilation. No acute inflammation. Appendix: The appendix is not visualized. PELVIS: Bladder: Normal. Reproductive: The the uterus is removed. No adnexal masses. ABDOMEN and PELVIS: Intraperitoneal space: No free air or free fluid. Bones/joints: No suspicious bone lesions. Soft tissues: No acute findings. Vasculature: No abdominal aortic aneurysm. Lymph nodes: No lymphadenopathy. IMPRESSION: Surgical changes of partial right colectomy. No bowel obstruction or areas of active inflammation. Thank you for allowing us to participate in the care of your patient. Dictated and Authenticated by: Sherlyn Au MD 09/21/2018 2:52 AM Central Time ([place] & [place]) FINAL REPORT EMERGENCY AFTER HOURS CT ABDOMEN AND PELVIS WITH IV CONTRAST: HISTORY: Abdominal pain in patient with history of Crohn's disease COMPARISON: 07/30/2018 IMPRESSION: 1. Postsurgical changes related to partial small bowel resection with anastomosis seen in the right l ower quadrant. No thickened loops of small bowel are seen, and there are no findings to suggest a bowel obstruction. 2. Postcholecystectomy changes. 3. No acute findings are seen in the abdomen or pelvis. Findings are in agreement with preliminary report by Carlos. Transcribed Date/Time: 09/21/2018 8:18 AM
[2018-09-21] MEDS ORDERED: Citalopram 20 MG TAB PO SCH (09:00)
[2018-09-21] MEDS: Sodium Chloride 0.9% 1,000 ML IV SCH ×2 (10:13→18:46)
[2018-09-21] MEDS: Morphine 2 MG/ML SYRINGE SLOW IVP PRN ×3 (10:19→21:16)
[2018-09-21] MEDS: Escitalopram Oxalate 20 mg Tablet PO SCH (10:19)
[2018-09-21] MEDS: Pantoprazole 40 MG VIAL IVP SCH ×2 (10:20→20:12)
[2018-09-21] MEDS: methylPREDNISolone Sod Succ 40 MG VIAL IVP SCH ×3 (10:22→21:10)
[2018-09-21] MEDS ORDERED: ISOVUE-370 76%-LOCM 1 ML ONE (10:24)
[2018-09-21] MEDS: Bacteriostatic Water 30 ML VIAL FS PRN (12:31)
[2018-09-21] MEDS: Ondansetron PF 4 MG/2 ML Vial IVP PRN (16:15)
--- NOTE | 2018-09-21 18:00 | CON ---
DATE OF CONSULTATION: 09/21/2018 CHIEF COMPLAINT: Abdominal pain and diarrhea. HISTORY OF PRESENT ILLNESS: Ms. Patton is a 43-year-old woman with ileocolonic Crohn disease that was diagnosed around 2002. She was treated with Remicade, but ultimately failed to respond and then many years later changed to Cimzia and then Humira. She had adverse reactions with the Cimzia and Humira. She ultimately required surgical resection of the small bowel on 2012 and then had another surgical resection the next year. She was started on Entyvio and took this between 2012 and 2016. She gradually had decreasing response to the Entyvio and by the time, this was stopped in 2017. She was only getting 2 weeks of relief and then the symptoms would flare back up. She stopped the Entyvio on 2016 and apparently has been off all treatment over the last year and a half. This was largely due to changes in her employment. She was admitted to the [facility] [place] on 07/31/2018 and was started on steroids. She followed up with Dr. Odom in the office and stool study showed C diff to be positive. She was treated with 2 weeks of vancomycin starting on August 30, 2018. She finished this around a week ago. She had no improvement in her diarrhea while on the vancomycin. Over the last week, however, she noted intermittent blood with the stool and then she had red bloody stool a couple of days ago and ultimately came back into the emergency room yesterday due to abdominal pain with sharp pain throughout the day, lasting for hours at a time in the right lower quadrant to left lower quadrant to her lower back. She has had increased bleeding over the last few days from the rectum. She has had no vomiting, but does get bloated immediately after eating and diarrhea within 5 to 20 minutes of eating. She has only had 2 bowel movements today, but has been n.p.o. She has had no fever. Her weight has been stable. PAST MEDICAL HISTORY: Ileocolonic Crohn's disease requiring bowel resection around 2012 to 2014. She had 2 bowel resections. She has had anxiety, depression, herniated disc, and chronic back pain. PAST SURGICAL HISTORY: Bowel resection x2, benign mass removed from the right breast, benign mass removed from the urethra, knee surgery, hysterectomy, injection for C3-C4, and also nerve ablation. FAMILY HISTORY: Negative for GI malignancies. SOCIAL HISTORY: No alcohol, tobacco, or drugs. ALLERGIES: METAXALONE, COMPAZINE, AND IMITREX. MEDICATIONS: 1. Prior to admission, prednisone 40 mg daily, which she has been on for the last 7 weeks. 2. Tramadol. 3. Methocarbamol. 4. Zofran. 5. Hyoscyamine. 6. Gabapentin. 7. Lexapro. REVIEW OF SYSTEMS: Negative x10 systems reviewed except as stated in the history of present illness. PHYSICAL EXAMINATION: VITAL SIGNS: Temperature 97.4, pulse 61, blood pressure 100/62. GENERAL: She is in no acute distress. She is alert and oriented x3. HEENT: Eyes have no scleral icterus. Oropharynx is clear without lesions. No cervical or supraclavicular lymphadenopathy. LUNGS: Clear to auscultation bilaterally. HEART: Regular rate and rhythm without murmur. ABDOMEN: Soft. She is tender to palpation in the right lower quadrant and left lower quadrant and epigastric region without guarding. Her bowel sounds are present. EXTREMITIES: No lower extremity edema. Cranial nerves are grossly intact. LABORATORY DATA: White blood cell count 16.0, hemoglobin is 13.7, and platelets 353. Eosinophil count 0.1. Sedimentation rate 7. Creatinine 0.77, bilirubin 0.4, AST 16, ALT 21, alkaline phosphatase 80, albumin 4.3. She had a vitamin D level of 17. Back on August 18, serum test was negative. Lipase 59. IMAGING: She had a CT scan of the abdomen and pelvis on 09/21/2018, that showed the changes of a prior right colectomy. Otherwise, no obvious inflammatory changes were noted. IMPRESSION: Ileocolonic Crohn disease, status post bowel resection x2 in the past. She ultimately lost response to infliximab and then had adverse reactions to Humira and Cimzia. She was treated with vedolizumab most recently, also ultimately lost response to that and would have improvement for a couple of weeks only following an infusion toward the end of course of that therapy. She has been off all biologics for the last year and a half. She has been on prednisone for the last 7 weeks now. She had two of her teeth broke over the last couple of weeks. She did test positive for C diff toxin and was treated with 2 weeks of vancomycin, however, symptoms did not improve while on the vancomycin. In fact, she has had increased bleeding over the last week. RECOMMENDATIONS: 1. We will adjust her Solu-Medrol to 20 mg every 8 hours. 2. Given her failure to respond to the prednisone, she will definitely need to be restarted on a biologic. Restarting Entyvio/vedolizumab will likely take significant time for onset and she had already lost significant response to this medication by the time she quit taking it year and a half ago. I would favor changing medications at this point, however, optimization of drug levels with vedolizumab could potentially be successful. There was a high chance that this would not be adequate and could take a prolonged period. I would favor starting Stelara, however, this will need to be discussed with Dr. 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 In the meantime, I will check her immune status to hepatitis A and hepatitis B and vaccinate if she is not immune. Check HIV and QuantiFERON in anticipation of restarting biologic therapy. I will ask our office to initiate the approval process for Stelara through the patient's insurance. 3. We will need to recheck C diff and potentially empirically retreat at this point. If the C diff is negative, then colonoscopy may be required to help to differentiate the extent of the disease and rule out other process. Biopsies could be done to rule out CMV colitis as well. I will check a fecal calprotectin. Job ID: [id number]
[2018-09-21 18:09] LABS: HBSAg Index 0.33 S/CO (0-0.99); HIV (1/2) Antibody/Antigen Non-Reactive (NonReactive); HIV 1/2 INDEX 0.16 S/CO (<1.00); Hep B Surf Ag Non-Reactive S/CO (NonReactive); Hep C IgG Ab Non-Reactive (NonReactive); Hep C Index 0.06 S/CO (0-0.79)
[2018-09-21 18:22] LABS: HBSAB Concentration 126.12 mIU/mL; Hep B Surf AB Reactive (NonReactive)
[2018-09-21] MEDS: diphenhydrAMINE 25 MG CAP PO PRN (19:25)
[2018-09-22] MEDS: Morphine 2 MG/ML SYRINGE SLOW IVP PRN ×3 (04:09→20:17)
[2018-09-22] MEDS: diphenhydrAMINE 25 MG CAP PO PRN ×2 (04:10→23:35)
[2018-09-22] MEDS: Ondansetron PF 4 MG/2 ML Vial IVP PRN ×3 (04:22→20:18)
[2018-09-22] MEDS: methylPREDNISolone Sod Succ 40 MG VIAL IVP SCH ×3 (05:30→21:09)
[2018-09-22 06:32] LABS: Hemoglobin 11.4 g/dL (12.0-16.0); Mean Corpuscular HGB CONC 32.6 g/dL (32.0-36.0); Mean Corpuscular Hemoglobin 30.9 pg (27.0-31.0); Mean Corpuscular Volume 94.6 fL (78.0-98.0); Mean Platelet Volume 7.2 fL (7.4-10.4); Platelet Count 295 thou/uL (130-400); RBC Distribution Width 12.2 % (11.5-14.5); White Blood Cell (WBC) Count 15.4 thou/uL (4.8-10.8)
[2018-09-22 06:34] LABS: Band 4 % (5-11); Lymphocytes 20 % (21-51); MDiff Complete? YES; Metamyelocyte 1 % (0-0); Neutrophil 75 % (42-75); Platelet Morphology Comment Appears Adequate
[2018-09-22] MEDS: Escitalopram Oxalate 20 mg Tablet PO SCH (09:39)
[2018-09-22] MEDS: Pantoprazole 40 MG VIAL IVP SCH ×2 (09:40→20:18)
[2018-09-22 13:12] VITALS: BMI 25.1
[2018-09-22] MEDS: HYDROcodone/Acetaminophen 5/325 mg Tablet PO PRN (14:31)
--- NOTE | 2018-09-22 15:06 | PDOC.PN ---
- Subjective Encounter Start Date: 09/22/18 Encounter Start Time: 11:00 Patient seen and examined for Abd pain/IBD flare. Abd pain improving. No fever/ chills. Diarrhea+. No new complaints. No overnight events - Objective Resuscitation Status - Order Detail: 09/21/18 04:23 Resuscitation Status Routine Resuscitation Status: FULL: Full Resuscitation MAR Reviewed: Yes Vital Signs & Weight: Vital Signs (12 hours) Temp Pulse Resp BP Pulse Ox 09/22/18 11:28 98.5 F 72 18 107/66 96 09/22/18 07:47 97.8 F 62 18 113/72 97 09/22/18 03:55 98.2 F 73 18 109/69 97 Weight Admit Weight 155 lb 13.869 oz Weight 155 lb 13.869 oz I&O: 09/21/18 09/22/18 09/23/18 06:59 06:59 06:59 Intake Total 950 Balance 950 Result Diagrams: 09/22/18 05:58 09/20/18 21:56 Radiology Reviewed by me: Yes (CT abd - reviewed) Phys Exam - Physical Examination Constitutional: NAD Respiratory: no wheezing, no rhonchi Cardiovascular: RRR, no rub Gastrointestinal: soft, positive bowel sounds mild gen tenderness/no guarding Musculoskeletal: no edema Neurological: non-focal, moves all 4 limbs Dx/Plan - Plan DVT proph w/SCDs IMPRESSION: Crohns flare N/V/Abd pain/Diarrhea Chronic low back pain Anxiety Depression - mild - stable PLAN: Cont IV Solumedrol Stool w/u negative Cont IVF Pain control Cont IV PPI Review of Systems - Review of Systems Respiratory: negative: Cough, Dry, Shortness of Breath, Hemoptysis, SOB with Excertion, Pleuritic Pain, Sputum, Wheezing Cardiovascular: negative: chest pain, palpitations, orthopnea, paroxysmal nocturnal dyspnea, edema, light headedness, other - Medications/Allergies Allergies/Adverse Reactions: Allergies Allergy/AdvReac Type Severity Reaction Status Date / Time metaxalone [From Skelaxin] Allergy Verified 03/30/13 13:01 prochlorperazine edisylate Allergy Verified 03/30/13 13:01 [From Compazine] prochlorperazine maleate Allergy Verified 03/30/13 13:01 [From Compazine] sumatriptan [From Imitrex] Allergy Verified 03/30/13 13:01 sumatriptan succinate Allergy Verified 03/30/13 13:01 [From Imitrex] Medications: Current Medications Acetaminophen (Tylenol) 650 mg PO Q4H PRN PRN Reason: Headache/Fever/Mild Pain (1-3) Hydrocodone Bitart/Acetaminophen ([place] 5/325) 1 tab PO Q4H PRN PRN Reason: Moderate Pain (4-6) Last Admin: 09/22/18 14:31 Dose: 1 tab Diphenhydramine HCl (Benadryl) 25 mg PO Q6H PRN PRN Reason: Itching Last Admin: 09/22/18 04:10 Dose: 25 mg Escitalopram Oxalate (Lexapro) 20 mg PO DAILY [facility] Last Admin: 09/22/18 09:39 Dose: 20 mg Sodium Chloride (Normal Saline 0.9%) 1,000 mls @ 75 mls/hr IV .[id number] [facility] Last Admin: 09/21/18 18:46 Dose: Not Given Methylprednisolone Sodium Succinate (Solu-Medrol) 20 mg IVP Q8HR [facility] Last Admin: 09/22/18 14:06 Dose: 20 mg Morphine Sulfate (Morphine) 2 mg SLOW IVP Q4H PRN PRN Reason: Moderate to Severe Pain (6-10) Last Admin: 09/22/18 12:38 Dose: 2 mg Ondansetron HCl (Zofran Odt) 4 mg PO Q6H PRN PRN Reason: Nausea/Vomiting Ondansetron HCl (Zofran) 4 mg IVP Q6H PRN PRN Reason: Nausea/Vomiting Last Admin: 09/22/18 12:39 Dose: 4 mg Pantoprazole Sodium (Protonix) 40 mg IVP Q12HR [facility] Last Admin: 09/22/18 09:40 Dose: 40 mg Polyethylene Glycol/Electrolytes (Golytely) 4,000 ml PO ONE [facility] Sodium Chloride (Flush - Normal Saline) 10 ml IVF Q12HR [place] Last Admin: 09/22/18 11:22 Dose: Not Given Sodium Chloride (Flush - Normal Saline) 10 ml IVF PRN PRN PRN Reason: Saline Flush Sterile Water (Bacteriostatic Water) 1 ml FS PRN PRN PRN Reason: RECONSTITUTION Last Admin: 09/21/18 12:31 Dose: 1 ml
[2018-09-22] MEDS: Sodium Chloride 0.9% 1,000 ML IV SCH ×2 (15:29→20:20)
[2018-09-22] MEDS: GoLYTELY 4,000 ml Bottle PO SCH (16:28)
--- NOTE | 2018-09-22 16:55 | PRG ---
DATE OF SERVICE: 09/22/2018 SUBJECTIVE: Ms. Patton ate some broth today and had increase in her lower abdominal pain with that. She did have some increased stool output after taking some liquids by mouth yesterday and was able to turn in her stool studies. She has had no further blood in the stool today. OBJECTIVE: VITAL SIGNS: Temperature 98.4, pulse 62, and blood pressure 123/75. GENERAL: She is in no acute distress. Alert and oriented x3. HEENT: Eyes have no scleral icterus. LUNGS: Clear to auscultation bilaterally. HEART: Regular rate and rhythm without murmur. ABDOMEN: Soft. Tender throughout her right abdomen. Bowel sounds are present. EXTREMITIES: No lower extremity edema. LABORATORY DATA: White blood cell count 15.4, hemoglobin 11.4, and platelets 295. Creatinine 0.77. Bilirubin 0.4, AST 16, ALT 21, alkaline phosphatase 80, C-reactive protein 0.5, albumin 4.3, lipase 59. Hepatitis B surface antigen is negative. Hepatitis B surface antibody is reactive. Hepatitis C antibody is nonreactive. IMPRESSION: Exacerbation of ileocolonic Crohn disease. She has had two prior bowel resections years ago. She has failed three anti-TNF medications and had ultimately quit responding to vedolizumab. RECOMMENDATIONS: 1. Continue Solu-Medrol 20 mg q.8 hours. 2. Repeat Clostridium difficile is negative. 3. Plan is for colonoscopy tomorrow to assess disease activity. 4. I have requested our office to initiate the approval process to start Justin. Job ID: [id number]
[2018-09-22] MEDS ORDERED: GoLYTELY 4,000 ml Bottle PO SCH (19:00)
[2018-09-22] MEDS: Bacteriostatic Water 30 ML VIAL FS PRN (21:16)
[2018-09-23] MEDS: Morphine 2 MG/ML SYRINGE SLOW IVP PRN ×4 (00:24→15:30)
[2018-09-23] MEDS ORDERED: diphenhydrAMINE 50 MG/ML VIAL IVP PRN (00:56)
[2018-09-23] MEDS: Sodium Chloride 0.9% 1,000 ML IV SCH ×2 (04:56→23:21)
[2018-09-23] MEDS: methylPREDNISolone Sod Succ 40 MG VIAL IVP SCH ×3 (06:36→21:24)
[2018-09-23] MEDS: Ondansetron PF 4 MG/2 ML Vial IVP PRN ×3 (06:36→23:20)
[2018-09-23] MEDS: Bacteriostatic Water 30 ML VIAL FS PRN (06:37)
[2018-09-23] MEDS: GoLYTELY 4,000 ml Bottle PO SCH (06:40)
[2018-09-23] MEDS: Escitalopram Oxalate 20 mg Tablet PO SCH (09:27)
[2018-09-23] MEDS: Pantoprazole 40 MG VIAL IVP SCH ×2 (09:28→20:56)
[2018-09-23] MEDS ORDERED: Lidocaine 1% PF 5 ML VIAL ONE (13:27)
[2018-09-23] MEDS ORDERED: PROPOFOL 200 MG/20 ML VIAL ONE (13:27)
[2018-09-23] MEDS ORDERED: Midazolam HCl 2 mg/2 ml Vial ONE (13:28)
--- NOTE | 2018-09-23 17:31 | PDOC.PN ---
- Subjective Encounter Start Date: 09/23/18 Encounter Start Time: 11:30 Patient seen and examined for IBD flare. Abd pain +. No new complaints. No overnight events - Objective Resuscitation Status - Order Detail: 09/21/18 04:23 Resuscitation Status Routine Resuscitation Status: FULL: Full Resuscitation MAR Reviewed: Yes Vital Signs & Weight: Vital Signs (12 hours) Temp Pulse Resp BP Pulse Ox 09/23/18 11:00 98.6 F 47 L 16 132/80 99 09/23/18 07:46 97.6 F 49 L 16 133/79 97 09/23/18 07:30 97 Weight Admit Weight 155 lb 13.869 oz Weight 155 lb 13.869 oz I&O: 09/22/18 09/23/18 09/24/18 06:59 06:59 06:59 Intake Total 950 5750 Output Total 15 Balance 950 5735 Result Diagrams: 09/22/18 05:58 09/20/18 21:56 Phys Exam - Physical Examination Constitutional: NAD Respiratory: no wheezing, no rhonchi Cardiovascular: RRR, no rub Gastrointestinal: soft, positive bowel sounds mild gen tenderness Musculoskeletal: no edema Neurological: non-focal, moves all 4 limbs Dx/Plan - Plan DVT proph w/SCDs IMPRESSION: Crohns flare N/V/Abd pain/Diarrhea Chronic low back pain Anxiety Depression - mild - stable PLAN: Cont IV Solumedrol/PPI Cont IVF Pain control Colonoscopy today Review of Systems - Review of Systems Respiratory: negative: Cough, Dry, Shortness of Breath, Hemoptysis, SOB with Excertion, Pleuritic Pain, Sputum, Wheezing Cardiovascular: negative: chest pain, palpitations, orthopnea, paroxysmal nocturnal dyspnea, edema, light headedness, other - Medications/Allergies Allergies/Adverse Reactions: Allergies Allergy/AdvReac Type Severity Reaction Status Date / Time metaxalone [From Skelaxin] Allergy Verified 03/30/13 13:01 prochlorperazine edisylate Allergy Verified 03/30/13 13:01 [From Compazine] prochlorperazine maleate Allergy Verified 03/30/13 13:01 [From Compazine] sumatriptan [From Imitrex] Allergy Verified 03/30/13 13:01 sumatriptan succinate Allergy Verified 03/30/13 13:01 [From Imitrex] Medications: Current Medications Acetaminophen (Tylenol) 650 mg PO Q4H PRN PRN Reason: Headache/Fever/Mild Pain (1-3) Hydrocodone Bitart/Acetaminophen ([place] 5/325) 1 tab PO Q4H PRN PRN Reason: Moderate Pain (4-6) Last Admin: 09/22/18 14:31 Dose: 1 tab Diphenhydramine HCl (Benadryl) 25 mg PO Q6H PRN PRN Reason: Itching Last Admin: 09/22/18 23:35 Dose: 25 mg Diphenhydramine HCl (Benadryl) 25 mg IVP ONE PRN PRN Reason: Itching Stop: 09/24/18 00:57 Last Admin: 09/23/18 01:06 Dose: 25 mg Escitalopram Oxalate (Lexapro) 20 mg PO DAILY [facility] Last Admin: 09/23/18 09:27 Dose: 20 mg Sodium Chloride (Normal Saline 0.9%) 1,000 mls @ 75 mls/hr IV .[id number] [facility] Last Admin: 09/23/18 04:56 Dose: 1,000 mls Methylprednisolone Sodium Succinate (Solu-Medrol) 20 mg IVP Q8HR [facility] Last Admin: 09/23/18 15:31 Dose: 20 mg Morphine Sulfate (Morphine) 2 mg SLOW IVP Q4H PRN PRN Reason: Moderate to Severe Pain (6-10) Last Admin: 09/23/18 15:30 Dose: 2 mg Ondansetron HCl (Zofran Odt) 4 mg PO Q6H PRN PRN Reason: Nausea/Vomiting Ondansetron HCl (Zofran) 4 mg IVP Q6H PRN PRN Reason: Nausea/Vomiting Last Admin: 09/23/18 15:30 Dose: 4 mg Pantoprazole Sodium (Protonix) 40 mg IVP Q12HR [facility] Last Admin: 09/23/18 09:28 Dose: 40 mg Sodium Chloride (Flush - Normal Saline) 10 ml IVF Q12HR [place] Last Admin: 09/23/18 09:30 Dose: Not Given Sodium Chloride (Flush - Normal Saline) 10 ml IVF PRN PRN PRN Reason: Saline Flush Sterile Water (Bacteriostatic Water) 1 ml FS PRN PRN PRN Reason: RECONSTITUTION Last Admin: 09/23/18 06:37 Dose: 1 ml
[2018-09-23] MEDS: HYDROcodone/Acetaminophen 5/325 mg Tablet PO PRN (18:23)
--- NOTE | 2018-09-23 18:59 | OP ---
DATE OF PROCEDURE: 09/23/2018 PROCEDURES PERFORMED: Esophagogastroduodenoscopy with biopsy and colonoscopy with biopsy. PREOPERATIVE DIAGNOSES: Crohn disease with abdominal pain and nausea and vomiting and abnormal CT scan of the abdomen and pelvis showing thickening of the jejunum and transverse colon. DESCRIPTION OF PROCEDURE: Informed consent was obtained from the patient. She was sedated with total intravenous anesthesia. The bite block was placed and the endoscope was advanced easily to the second portion of the duodenum and retroflexion was performed in the stomach. The esophagus was normal. The GE junction was normal. The stomach was normal including retroflexed views. The pylorus and first and second portions of the duodenum were normal. Biopsies were taken from the duodenum to rule out celiac disease. The patient was turned around. Rectal exam was performed and was normal. There was no anal fissure present. The colonoscope was advanced to the distal ileum. There were multiple 2 to 3 mm erosions in the terminal ileum. Biopsies were obtained. The ileocolonic anastomosis was intact and patent. She has had a prior right colon resection. The colonic mucosa was normal throughout, including retroflexed views in the rectum. Segmental biopsies were obtained from the colon. IMPRESSION: 1. Normal esophagogastroduodenoscopy. Duodenal biopsies taken to rule out celiac disease. 2. A 2 to 3 mm erosions in the distal ileum, biopsied. 3. Small bowel to transverse colon anastomosis was patent and appeared healthy. 4. Normal colon otherwise including retroflex views. There was no anal fissure. RECOMMENDATIONS: 1. Await histopathology. 2. MRI enterography. Job ID: [id number]
[2018-09-23] MEDS ORDERED: Ketorolac Tromethamine 30 MG/ML VIAL IVP PRN (23:04)
[2018-09-23] MEDS: diphenhydrAMINE 25 MG CAP PO PRN (23:31)
[2018-09-24] MEDS: HYDROcodone/Acetaminophen 5/325 mg Tablet PO PRN ×2 (04:20→08:46)
[2018-09-24 05:47] LABS: #Lymphocytes 1.6 thou/uL (1.20-3.40); #Monocytes 0.5 thou/uL (0.11-0.59); #Neutrophils 9.3 thou/uL (1.40-6.50); %Basophils 0.1 % (0.0-1.0); %Eosinophils 0.1 % (0.0-10.0); %Lymphocytes 14.1 % (21.0-51.0); %Monocytes 4.4 % (0.0-10.0); %Neutrophils 81.3 % (42.0-75.0); Hemoglobin 11.5 g/dL (12.0-16.0); Mean Corpuscular HGB CONC 32.7 g/dL (32.0-36.0); Mean Corpuscular Volume 94.7 fL (78.0-98.0); Mean Platelet Volume 7.1 fL (7.4-10.4); Platelet Count 286 thou/uL (130-400); RBC Distribution Width 12.1 % (11.5-14.5); Red Blood Cell (RBC) Count 3.72 mill/uL (4.20-5.40); White Blood Cell (WBC) Count 11.5 thou/uL (4.8-10.8)
[2018-09-24 06:17] LABS: ALT (SGPT) 29 U/L (8-55); AST (SGOT) 30 U/L (5-34); Albumin 3.4 g/dL (3.5-5.0); Alkaline Phosphatase 60 U/L (40-150); Anion Gap 11 mmol/L (10-20); BUN (Urea Nitrogen) 8 mg/dL (7.0-18.7); Bilirubin, Total 0.5 mg/dL (0.2-1.2); Calc. Creatinine Clearance 105 mL/min (70-130); Carbon Dioxide 30 mmol/L (22-29); Chloride 101 mmol/L (98-107); Estimated GFR-MDRD 83; Globulin 2.1 g/dL (2.4-3.5); Glucose 107 mg/dL (70-105); Magnesium 1.8 mg/dL (1.6-2.6); Phosphorus 4.4 mg/dL (2.3-4.7); Potassium 3.9 mmol/L (3.5-5.1); Protein, Total 5.5 g/dL (6.0-8.3); Sodium 138 mmol/L (136-145)
[2018-09-24] MEDS: methylPREDNISolone Sod Succ 40 MG VIAL IVP SCH ×2 (06:18→14:29)
[2018-09-24] MEDS ORDERED: Sodium Chloride 0.9% 20 ML ONE (07:47)
[2018-09-24] MEDS: Pantoprazole 40 MG VIAL IVP SCH (08:41)
[2018-09-24] MEDS: Escitalopram Oxalate 20 mg Tablet PO SCH (08:46)
[2018-09-24] MEDS ORDERED: Acetaminophen/Codeine 30-300mg Tablet PO PRN (08:52)
[2018-09-24] MEDS ORDERED: Sodium Chloride 0.9% 1,000 ML IV SCH ×2 (08:53→17:43)
[2018-09-24] MEDS ORDERED: traMADol HCl 50 MG TAB PO PRN (08:53)
--- NOTE | 2018-09-24 11:59 | MRI ---
MRI ABDOMEN WITHOUT AND WITH CONTRAST: Date: 09/24/18 COMPARISON: CT abdomen/pelvis dated 11/21/18. HISTORY: Fever and bloody stools for 3-4 days. History of Crohn's disease, status post colon resection. TECHNIQUE: Multiplanar, multisequence MR images were obtained of the abdomen without and with IV contrast. FINDINGS: The patient is status post resection of the cecum. An anastomotic staple line produces artifact, limi ting evaluation of this region. No thickening of the chatman of the colon or small bowel are seen on th is examination. The liver, kidneys, adrenal glands, spleen, and pancreas are unremarkable. The gallbladder has been r emoved. No abdominal adenopathy seen. No marrow signal abnormality is present. The patient is status post hysterectomy. The right ovary remains and there is a dominant follicle in the right ovary measur ing 2.2 cm in greatest dimension. IMPRESSION: No significant bowel abnormality. POS: TPC
[2018-09-24] MEDS ORDERED: predniSONE 20 MG TAB PO SCH (16:00)
--- NOTE | 2018-09-24 17:00 | PRG ---
DATE OF SERVICE: 09/24/2018 SUBJECTIVE: Ms. Patton still has some right-sided abdominal pain. She is tolerating clear liquids. She has been having diarrhea prior to admission. PHYSICAL EXAMINATION: VITAL SIGNS: Temperature 99.2, pulse 52, blood pressure 126/75. GENERAL: She is in no acute distress. Alert and oriented x3. HEENT: Eyes have no scleral icterus. Oropharynx is clear without lesions. LUNGS: Clear to auscultation bilaterally. HEART: Regular rate and rhythm without murmur. ABDOMEN: Soft. Mild tenderness in the epigastric to right abdomen without guarding. Bowel sounds are present. EXTREMITIES: No lower extremity edema. LABORATORY DATA: White blood cell count 11.5, hemoglobin 11.5, platelets 286. Creatinine 0.76. Bilirubin 0.5, AST 30, ALT 29, alkaline phosphatase 60, albumin 3.4. IMPRESSION: 1. Crohn disease. She has been on steroids for over a month now. Esophagogastroduodenoscopy was normal. Colonoscopy showed normal colon. The anastomosis was open and appeared healthy. There were some erosions in the distal ileum; however, she did not have significant inflammation to really explain her pain from a Crohn's standpoint. MRI with MR enterography protocol today did not show evidence of active disease in the small bowel. It is possible that her abdominal pain and diarrhea are from a source other than her Crohn's. Certainly, given the fact that she has had 2 bowel resections, small bowel Crohn's still has to be considered and likely she should be on chronic immune suppression to prevent more severe recurrence. The steroids may have the endoscopic and MRI appearance improved at this point, but she likely still needs to start immune suppression due to her severe prior disease. 2. Abdominal pain. Again, active Crohn's is not clearly identified as a source for her pain at this point. She could have small bowel bacterial overgrowth. She got irritable bowel syndrome. 3. Chronic pain. She has been on tramadol as an outpatient for her neck pain. She has oral opioid pain medicines available, but has been taking the morphine for pain today. RECOMMENDATIONS: 1. Advance to full liquid diet and if she tolerates this well, then advance to a low residue diet tomorrow morning. 2. Stop Solu-Medrol and transition back to oral prednisone. 3. Depending on the progress of her diarrhea, consider trial of colestipol as the next step and if that does not help, perhaps the trial of Xifaxan. 4. Transition off the IV opioids. 5. We will follow through with the approval process for Justin as an outpatient; however, this will still have to be determined whether ultimately this is the final medication decided upon for long-term management of her Crohn's. Job ID: [id number]
[2018-09-24] MEDS ORDERED: Morphine 2 MG/ML SYRINGE SLOW IVP PRN (17:43)
--- NOTE | 2018-09-24 17:47 | PDOC.PN ---
- Subjective Encounter Start Date: 09/24/18 Encounter Start Time: 15:00 Patient seen and examined for IBD exacerbation. No fever. Abd pain slowly improving. No new complaints. No overnight events - Objective Resuscitation Status - Order Detail: 09/21/18 04:23 Resuscitation Status Routine Resuscitation Status: FULL: Full Resuscitation MAR Reviewed: Yes Vital Signs & Weight: Vital Signs (12 hours) Temp Pulse Resp BP Pulse Ox 09/24/18 16:00 98.5 F 56 L 14 113/72 99 09/24/18 11:42 99.2 F 52 L 12 126/75 98 09/24/18 08:00 97.7 F 42 L 12 134/73 95 Weight Admit Weight 155 lb 13.869 oz Weight 155 lb 13.869 oz I&O: 09/23/18 09/24/18 09/25/18 06:59 06:59 06:59 Intake Total 5750 900 Output Total 15 Balance 5735 900 Result Diagrams: 09/24/18 05:18 09/24/18 05:18 Radiology Reviewed by me: No (MRI abd - reviewed) Phys Exam - Physical Examination Constitutional: NAD Respiratory: no wheezing, no rhonchi Cardiovascular: RRR, no rub Gastrointestinal: soft, positive bowel sounds mild gen tenderness/ no rebound Musculoskeletal: no edema Neurological: moves all 4 limbs Dx/Plan - Plan DVT proph w/SCDs IMPRESSION: Crohns flare N/V/Abd pain/Diarrhea Chronic low back pain Anxiety Depression - mild - stable PLAN: IV Solumedrol to PO Prednisone Cont PPI Cont IVF - reduce rate Reduce IV Morphine per GI DC planning Add Tramadol and Tylenol #3 Review of Systems - Review of Systems Respiratory: negative: Cough, Dry, Shortness of Breath, Hemoptysis, SOB with Excertion, Pleuritic Pain, Sputum, Wheezing Cardiovascular: negative: chest pain, palpitations, orthopnea, paroxysmal nocturnal dyspnea, edema, light headedness, other - Medications/Allergies Allergies/Adverse Reactions: Allergies Allergy/AdvReac Type Severity Reaction Status Date / Time metaxalone [From Skelaxin] Allergy Verified 03/30/13 13:01 prochlorperazine edisylate Allergy Verified 03/30/13 13:01 [From Compazine] prochlorperazine maleate Allergy Verified 03/30/13 13:01 [From Compazine] sumatriptan [From Imitrex] Allergy Verified 03/30/13 13:01 sumatriptan succinate Allergy Verified 03/30/13 13:01 [From Imitrex] Medications: Current Medications Acetaminophen (Tylenol) 650 mg PO Q4H PRN PRN Reason: Headache/Fever/Mild Pain (1-3) Acetaminophen/Codeine Phosphate (Tylenol #3) 1 tab PO Q4H PRN PRN Reason: Moderate Pain (4-6) Last Admin: 09/24/18 14:27 Dose: 1 tab Hydrocodone Bitart/Acetaminophen ([place] 5/325) 1 tab PO Q4H PRN PRN Reason: Moderate Pain (4-6) Last Admin: 09/24/18 08:46 Dose: 1 tab Diphenhydramine HCl (Benadryl) 25 mg PO Q6H PRN PRN Reason: Itching Last Admin: 09/23/18 23:31 Dose: 25 mg Escitalopram Oxalate (Lexapro) 20 mg PO DAILY [facility] Last Admin: 09/24/18 08:46 Dose: 20 mg Sodium Chloride (Normal Saline 0.9%) 1,000 mls @ 30 mls/hr IV .Q24H [place] Morphine Sulfate (Morphine) 2 mg SLOW IVP Q6H PRN PRN Reason: Moderate to Severe Pain (6-10) Stop: 09/25/18 09:00 Ondansetron HCl (Zofran Odt) 4 mg PO Q6H PRN PRN Reason: Nausea/Vomiting Ondansetron HCl (Zofran) 4 mg IVP Q6H PRN PRN Reason: Nausea/Vomiting Last Admin: 09/23/18 23:20 Dose: 4 mg Pantoprazole Sodium (Protonix) 40 mg PO DAILY [facility] Last Admin: 09/24/18 09:35 Dose: Not Given Prednisone (Prednisone) 40 mg PO QAM-WM [facility] Sodium Chloride (Flush - Normal Saline) 10 ml IVF Q12HR [facility] Last Admin: 09/24/18 08:48 Dose: Not Given Sodium Chloride (Flush - Normal Saline) 10 ml IVF PRN PRN PRN Reason: Saline Flush Tramadol HCl (Ultram) 50 mg PO Q4H PRN PRN Reason: Moderate Pain (4-6)
[2018-09-25] MEDS ORDERED: predniSONE 20 MG TAB PO SCH (08:00)
[2018-09-25] MEDS: Escitalopram Oxalate 20 mg Tablet PO SCH (08:44)
[2018-09-25] MEDS ORDERED: Cholestyramine/Aspartame 4 gm Packet PO SCH ×2 (12:30→22:00)
[2018-09-25 12:32] VITALS: BP 104/68; TEMP 98.8
--- NOTE | 2018-09-25 12:56 | PRG ---
DATE OF SERVICE: 09/25/2018 SUBJECTIVE: Ms. Patton has tolerated her low residue diet this morning; however, she has had an increase in bowel movements with up to 15 small formed stools with some urgency and cramping today. She has had no blood in the stool today. She has a right-sided abdominal pain, which is stable. No fever. It is her son's 18th birthday today and she wants to go home. OBJECTIVE: VITAL SIGNS: Temperature 98.1, pulse 61, and blood pressure 112/68. GENERAL: She is in no acute distress. Alert and oriented x3. LUNGS: Clear to auscultation bilaterally. HEART: Regular rate and rhythm without murmur. ABDOMEN: Soft. Mild tenderness in the right lower quadrant without guarding. Bowel sounds are present. EXTREMITIES: No lower extremity edema. LABORATORY DATA: No new labs today. IMPRESSION: 1. Crohn disease of the small intestine. Esophagogastroduodenoscopy and colonoscopy did not show significant active mucosal disease endoscopically. She could have more significant small bowel disease in between where the scope still reach; however, the MR enterography was normal. She has been on steroids for over a month and a half now. She has been transitioned back now from IV steroids to prednisone. Given that she has had small bowel resection twice before for Crohn disease. She most likely will require chronic immune suppression with biologic. Approval for Stelara has been initiated. We will taper. We will let her go home today on a prednisone taper. 2. Abdominal pain and diarrhea. 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 She could have a bile salt diarrhea or irritable bowel syndrome. RECOMMENDATIONS: 1. Prednisone taper. We will discharge on prednisone 40 mg daily and taper by 10 mg per week and then down from 10 mg to 5 mg for a 5-week taper. 2. Follow up with Dr. Odom in the office to discuss potentially starting Stelara, as an outpatient. 3. We will start a trial of cholestyramine. We will give her first dose today. If she has no improvement with cholestyramine after few days, then consider a trial of Xifaxan empirically for small bowel bacterial overgrowth. She did have a confirmed case of Clostridium difficile 3 weeks ago, that was treated with vancomycin orally. Xifaxan could potentially cover that as well. However, this hospital stay, she tested negative for Clostridium difficile antigen and toxin. Job ID: [id number]
[2018-09-25] MEDS: HYDROcodone/Acetaminophen 5/325 mg Tablet PO PRN (13:04)
--- NOTE | 2018-09-25 15:33 | PDOC.PN ---
- Subjective Encounter Start Date: 09/25/18 Encounter Start Time: 11:30 Patient seen and examined for IBD exacerbation. Abd pain improving. No new complaints. No overnight events - Objective Resuscitation Status - Order Detail: 09/21/18 04:23 Resuscitation Status Routine Resuscitation Status: FULL: Full Resuscitation MAR Reviewed: Yes Vital Signs & Weight: Vital Signs (12 hours) Temp Pulse Resp BP Pulse Ox 09/25/18 12:00 98.8 F 68 12 104/68 97 09/25/18 08:00 98.1 F 61 15 112/68 99 09/25/18 04:00 98.2 F 51 L 20 116/71 96 Weight Admit Weight 155 lb 13.869 oz Weight 155 lb 13.869 oz I&O: 09/24/18 09/25/18 09/26/18 06:59 06:59 06:59 Intake Total 900 Balance 900 Result Diagrams: 09/24/18 05:18 09/24/18 05:18 Phys Exam - Physical Examination Constitutional: NAD Respiratory: no wheezing, no rhonchi Cardiovascular: RRR, no rub Gastrointestinal: soft, positive bowel sounds mild tenderness, no rebound/guarding Musculoskeletal: no edema Neurological: non-focal Dx/Plan - Plan DVT proph w/SCDs IMPRESSION: Crohns flare N/V/Abd pain/Diarrhea Chronic low back pain Anxiety Depression - mild - stable PLAN: Cont PO Prednisone DC home Tramadol for pain Review of Systems - Review of Systems Respiratory: negative: Cough, Dry, Shortness of Breath, Hemoptysis, SOB with Excertion, Pleuritic Pain, Sputum, Wheezing Cardiovascular: negative: chest pain, palpitations, orthopnea, paroxysmal nocturnal dyspnea, edema, light headedness, other - Medications/Allergies Allergies/Adverse Reactions: Allergies Allergy/AdvReac Type Severity Reaction Status Date / Time metaxalone [From Skelaxin] Allergy Verified 03/30/13 13:01 prochlorperazine edisylate Allergy Verified 03/30/13 13:01 [From Compazine] prochlorperazine maleate Allergy Verified 03/30/13 13:01 [From Compazine] sumatriptan [From Imitrex] Allergy Verified 03/30/13 13:01 sumatriptan succinate Allergy Verified 03/30/13 13:01 [From Imitrex]
--- NOTE | 2018-09-25 16:01 | DIS ---
DATE OF ADMISSION: 09/21/2018 DATE OF DISCHARGE: 09/25/2018 DISCHARGE DISPOSITION: Home. FOLLOWUP VISITS: 1. Follow up with primary care physician, Dr. Paris Garcias, in 1 week. 2. Follow up with Gastroenterology, Dr. Mahnaz Odom, as scheduled. DISCHARGE MEDICATIONS: 1. The patient will continue prednisone as directed. 2. Protonix 40 mg daily. 3. Tramadol as needed for pain. 4. All other home medications were left unchanged. The patient was seen on the day of discharge. Denies any new complaints. No fever or chills reported. Abdominal pain is improving. SIGNIFICANT LABORATORY DATA: Sodium on admission 135, repeat 138. Albumin 3.4 with total protein 5.5. WBC on admission 16, repeat was 11.5. HIV negative. Hepatitis profile was negative. Hepatitis C antibody negative. Hepatitis A antibody negative. Stool workup was essentially negative. DIAGNOSTIC TESTS: 1. CT scan of the abdomen and pelvis on admission was negative for acute findings. It showed surgical changes of the partial right colectomy. 2. Abdominal MRI with and without contrast showed no significant bowel abnormality. INPATIENT PROCEDURES: 1. EGD was normal. 2. Colonoscopy showed 2-3 mm erosions in the distal ileum which were biopsied. Colon was normal. No anal fissure. Small bowel to transverse colon anastomosis was patent and appeared healthy. BRIEF HOSPITAL COURSE: The patient is a 43-year-old female with Crohn disease, presented to the hospital on 21 September 2018, with abdominal discomfort. She was admitted with a diagnosis of Crohn's exacerbation. She was started on IV steroids. A stool workup was negative. She underwent imaging testing including CT scan as well as MRI. The pain was controlled with IV narcotics. She also underwent EGD and colonoscopy by Dr. Chip Valdez. Abdominal pain has gradually improved. Dr. Valdez recommended prednisone 40 mg daily, taper by 10 mg per week, and then down from 10 mg to 5 mg for a 5-week taper. The patient was advised to follow up with Dr. Odom's office to discuss potentially starting Stelara as outpatient. The patient has been cleared by Gastroenterology for discharge. TESTS PENDING AT DISCHARGE: 1. Biopsy report from EGD and colonoscopy. 2. QuantiFERON TB testing. Plan of care was discussed with the patient in detail. She stated understanding. Job ID: [id number]
[2018-09-26 22:06] LABS: QuantiFERON-TB Gold Plus Negative (Negative)
== END 2018-09-25 15:21 | disposition home or self-care (01) | DRG 387 ==
LOC: ERS 21:16 → SURG A 09-21 07:37 → OBSVTOIN 09-21 09:32 → SURG A 09-21 09:32
PROVIDERS: ADMIT Internal Medicine; ATTEND Internal Medicine
PROC: 0DB98ZX Excision of Duodenum, Via Natural or Artificial Opening Endoscopic, Diagnostic (ICD-10-PCS; principal; 2018-09-21)
PROC: 0DBB8ZX Excision of Ileum, Via Natural or Artificial Opening Endoscopic, Diagnostic (ICD-10-PCS; 2018-09-21)
DX: K50.90 Crohn's disease, unspecified, without complications (principal); F41.9 Anxiety disorder, unspecified; F32.9 Major depressive disorder, single episode, unspecified
CPT/HCPCS: 36415; 74177; 74182; 80053; 81003; 82274; 83690; 83735; 84100; 84703; 85007; 85025; 85027; 85652; 86140; 86480; 86706; 86708; 86803; 86850; 86900; 86901; 87045; 87046; 87324; 87328; 87329; 87340; 87389; 87449; 87899; 88305; 93005; 96361; 96374; 96375; 96376; C9113; J1200; J1610; J1885; J2250; J2270; J2405; J2920; J2930; J7512; Q0163; Q9966

== ENCOUNTER 2018-10-04 17:22 | Observation (INO) | payer BC ==
[~2018-10-04 17:22] MED LIST changes: +Iopamidol 370 76% 50 ML VIAL FS ONE
[2018-10-04 17:54] LABS: #Eosinphils 0.1 thou/uL (0.0-0.7); #Lymphocytes 1.4 thou/uL (1.20-3.40); #Monocytes 0.4 thou/uL (0.11-0.59); #Neutrophils 9.1 thou/uL (1.40-6.50); %Eosinophils 0.5 % (0.0-10.0); %Lymphocytes 13.1 % (21.0-51.0); %Monocytes 3.3 % (0.0-10.0); %Neutrophils 83.2 % (42.0-75.0); Hemoglobin 13.9 g/dL (12.0-16.0); Mean Corpuscular HGB CONC 33.4 g/dL (32.0-36.0); Mean Corpuscular Hemoglobin 31.4 pg (27.0-31.0); Mean Platelet Volume 6.6 fL (7.4-10.4); Platelet Count 341 thou/uL (130-400); RBC Distribution Width 12.4 % (11.5-14.5); Red Blood Cell (RBC) Count 4.43 mill/uL (4.20-5.40); White Blood Cell (WBC) Count 10.9 thou/uL (4.8-10.8)
[2018-10-04 18:17] LABS: ALT (SGPT) 31 U/L (8-55); AST (SGOT) 26 U/L (5-34); Albumin 4.3 g/dL (3.5-5.0); Alkaline Phosphatase 85 U/L (40-150); Anion Gap 14 mmol/L (10-20); BUN (Urea Nitrogen) 18 mg/dL (7.0-18.7); Bilirubin, Total 0.7 mg/dL (0.2-1.2); Calc. Creatinine Clearance 0 mL/min (70-130); Calcium 9.6 mg/dL (7.8-10.44); Carbon Dioxide 21 mmol/L (22-29); Chloride 106 mmol/L (98-107); Estimated GFR-MDRD 79; Globulin 2.8 g/dL (2.4-3.5); Glucose 119 mg/dL (70-105); Lipase 79 U/L (8-78); Potassium 3.9 mmol/L (3.5-5.1); Protein, Total 7.1 g/dL (6.0-8.3); Sodium 137 mmol/L (136-145)
[2018-10-04] MEDS ORDERED: Ondansetron PF 4 MG/2 ML Vial ONE (18:40)
[2018-10-04] MEDS ORDERED: Pantoprazole 40 MG VIAL ONE (18:40)
[2018-10-04] MEDS ORDERED: Vancomycin HCl 25 MG/ML Oral PO SCH (18:45)
[2018-10-04 19:35] LABS: Bilirubin Negative (Negative); Blood, Urine Trace (Negative); Clarity CLEAR (Clear); Glucose, Urine (Dipstick) Negative (Negative); Leukocyte Negative (Negative); Nitrite Negative (Negative); Protein, Urine (Dipstick) Negative (Neg-Trace); Specific Gravity, Urine 1.021 (1.002-1.036); Urobilinogen 0.2 mg/dL (0.2-1.0)
[2018-10-04 19:37] LABS: Bacteria/HPF None Seen HPF (None Seen); Hyaline Casts/LPF 4-6 HYALINE CAST LPF (0-3 Hyaline); Pathc Cast-AUWi Flag 1.22 (0-2.49); RBC/HPF 0-3 HPF (0-3); Squamous Epithelial 0-3 HPF (0-3); WBC/HPF 0-3 HPF (0-3)
[2018-10-04] MEDS ORDERED: diphenhydrAMINE 50 MG/ML VIAL ONE (20:37)
[2018-10-04] MEDS ORDERED: Morphine 4 MG/ML VIAL ONE (20:37)
--- NOTE | 2018-10-04 22:05 | CT ---
CT Abdomen Pelvis W Con History: [Abdominal pain] Comparison: CT abdomen and pelvis September 21, 2018 Findings: Lung bases are clear. No pericardial effusion. Surgical clips along the ascending colon. Liver and spleen as well as pancreas are unremarkable. [place] effect of the extrahepatic biliary s ystem and intrahepatic biliary system with the common bile duct measuring up to 8mm. Kidneys are unremarkable as well as adrenal glands. No hydronephrosis. Accessory left renal draining vein is pres ent. No dilated loops of large or small bowel. No retroperitoneal adenopathy. Right adnexal hypodensity is similar. Impression: No evidence for acute inflammatory process in the abdomen or pelvis. [place] effect of the extrahepatic and intrahepatic biliary system is present. Recommend correlation with LFTs.
[2018-10-05] MEDS ORDERED: Morphine 4 MG/ML VIAL SLOW IVP PRN (00:41)
[2018-10-05] MEDS ORDERED: Morphine 2 MG/ML SYRINGE ONE (02:57)
[2018-10-05] MEDS ORDERED: Morphine 4 MG/ML VIAL ONE (03:01)
[2018-10-05] MEDS ORDERED: Ondansetron PF 4 MG/2 ML Vial ONE (03:08)
[2018-10-05] MEDS ORDERED: diphenhydrAMINE 50 MG/ML VIAL ONE (03:08)
[2018-10-05] MEDS ORDERED: Acetaminophen 650 MG Suppository PR PRN (04:45)
[2018-10-05] MEDS ORDERED: Acetaminophen 325 MG TAB PO PRN (04:45)
[2018-10-05] MEDS ORDERED: Sodium Chloride 0.9% 1,000 ML IV SCH (04:45)
[2018-10-05] MEDS ORDERED: Vancomycin HCl 25 MG/ML Oral PO SCH (04:45)
[2018-10-05] MEDS ORDERED: Ketorolac Tromethamine 30 MG/ML VIAL IVP PRN (04:50)
[2018-10-05] MEDS ORDERED: Ketorolac Tromethamine 30 MG/ML VIAL IVP SCH (05:00)
--- NOTE | 2018-10-05 05:11 | HP ---
PRIMARY CARE PROVIDER: Paris Garcias MD CHIEF COMPLAINT: Diarrhea. HISTORY OF PRESENT ILLNESS: Ms. Patton is a pleasant 43-year-old lady who was seen at [facility] on October 05, 2018. She reports that she had an episode of Clostridium difficile diarrhea in early July of 2018. She was hospitalized here from September 21 to of this year for Crohn disease flare. Following discharge, she continued to have diarrhea. She was seen at her director content marketing's office 5 days ago. She was still having diarrhea at that time, and had stool samples sent for Clostridium difficile testing the following day. Contacted by her director content marketing office yesterday and was advised to go to the emergency room because her Clostridium difficile toxin test was positive. She therefore presented to the emergency room. She reports that her last bowel movement was earlier today. She also reports diffuse abdominal pain that has been going on for several months, made worse with eating, 6/10 at its worst and nonradiating. She cannot recall any relieving factors. REVIEW OF SYSTEMS: All other systems reviewed and found to be negative. PAST MEDICAL HISTORY: Crohn disease. PAST SURGICAL HISTORY: Bowel resection x2, mass removed from the right breast, mass removed from the urethra, right knee surgery and hysterectomy. FAMILY HISTORY: The patient denies any family history of premature coronary artery disease. SOCIAL HISTORY: The patient denies tobacco use, alcohol use, or recreational drug use. ALLERGIES: SKELAXIN, COMPAZINE, AND IMITREX. CURRENT MEDICATIONS: 1. Escitalopram 10 mg daily. 2. Tramadol 50 mg every 6 hours as needed. 3. Zofran 8 mg sublingually as needed. 4. Gabapentin 600 mg 3 times a day. 5. Methocarbamol 750 mg 2 times a day. 6. Hyoscyamine 1 tablet as needed. 7. Prednisone 30 mg daily. 8. Questran 1 packet 2 times a day. PHYSICAL EXAMINATION: GENERAL: On examination, Ms. Patton is awake and alert, not in acute distress. VITAL SIGNS: Blood pressure is 115/76, pulse 68, respiratory rate 16, and oxygen saturation 100% on room air. She is afebrile. EYES: No scleral icterus, no conjunctival pallor. ENT: Dry mucosal membranes. No oropharyngeal erythema or exudates. NECK: Supple, nontender, trachea is midline. RESPIRATORY: Accessory muscles of breathing are not active. Chest wall movements are symmetric bilaterally. Lungs are clear to auscultation without wheeze, rhonchi, or crepitations. CARDIOVASCULAR: S1 and S2 are heard, regular. Peripheral pulses palpable. No carotid bruit. No pericardial rub. ABDOMEN: Soft, mild diffuse tenderness, no guarding or rigidity. Bowel sounds heard. NEUROLOGIC: Cranial nerves 2 through 12 are intact. MUSCULOSKELETAL: Power is 5/5 in all 4 extremities. SKIN: No rashes or subcutaneous nodules. LYMPHATIC: No cervical lymphadenopathy. PSYCHIATRIC: Normal mood, normal affect, the patient is oriented to person, place, and time. LABORATORY DATA: Ms. Patton's labs and investigations were reviewed. She has leukocytosis with 10,900 white cells, of which 83.2% are neutrophils. Hemoglobin and platelet count are normal. Carbon dioxide is slightly decreased at 21. Otherwise, comprehensive metabolic profile is unremarkable. Lipase is elevated at 79. Urinalysis is positive for trace blood and negative for nitrite and leukocyte esterase. Clostridium difficile test was done on October 01. It is positive for antigen and toxin. ASSESSMENT AND PLAN: Ms. Patton is a pleasant 43-year-old lady who was seen at [facility] on October 05, 2018. Her problem list includes: 1. Recurrent Clostridium difficile infection: Ms. Patton will be admitted to the hospital for further management. She will be started on vancomycin. We will also start her on Florastor. We will consult Gastroenterology Service for opinion and help with management. 2. Abdominal pain: We will try to avoid narcotics if possible. We will start her on p.r.n. Toradol. Many thanks for allowing me to participate in your patient's care. Please feel free to contact me with any questions or concerns. LEVEL OF RISK: Moderate. LEVEL OF COMPLEXITY: Moderate. Job ID: [id number]
--- NOTE | 2018-10-05 08:02 | DIS ---
DATE OF ADMISSION: 10/05/2018 DATE OF DISCHARGE: 10/05/2018 The patient is leaving against medical advice on October 05, 2018, HOSPITAL COURSE: Ms. Patton is a pleasant 43-year-old lady, who was admitted to [facility] on October 05, 2018 for recurrent Clostridium difficile diarrhea. Please refer to my history and physical note dated October 05, 2018 for further details. Following admission, Ms. Patton decided to leave the hospital against medical advice. At the time of this dictation, she is awaiting transport. Job ID: [id number]
[2018-10-05] MEDS ORDERED: Saccharomyces boulardii 250 MG CAP PO SCH (09:00)
[2018-10-05] MEDS ORDERED: Cholestyramine/Aspartame 4 gm Packet PO SCH (10:00)
== END 2018-10-05 06:17 | disposition left against medical advice (07) ==
LOC: ERS 17:22 → ERHOLD 10-05
PROVIDERS: ADMIT Internal Medicine; ATTEND Internal Medicine
DX: A04.71 Enterocolitis due to Clostridium difficile, recurrent (principal); K50.90 Crohn's disease, unspecified, without complications; Z53.21 Procedure and treatment not carried out due to patient leaving prior to being seen by health care provider; Z79.52 Long term (current) use of systemic steroids; Z79.899 Other long term (current) drug therapy; Z88.8 Allergy status to other drugs, medicaments and biological substances; Z90.49 Acquired absence of other specified parts of digestive tract
CPT/HCPCS: 36415; 74177; 80053; 81003; 81015; 83690; 85025; 86850; 86900; 86901; 96361; 96372; 96374; 96375; 96376; C9113; G0378; J0500; J1200; J2270; J2405; Q9966; Q9967

== ENCOUNTER 2022-08-01 05:49 | Day surgery (SDC) | payer BC ==
[2022-07-30 13:03] VITALS: BMI 22.6
[2022-08-01] MEDS ORDERED: Bupivacaine/Epinephrine 0.25% 30 ML VIAL ONE (06:35)
[2022-08-01] MEDS ORDERED: fentaNYL PF 100 MCG/2 ML SYRINGE ONE (06:46)
[2022-08-01] MEDS ORDERED: Lidocaine 2% PF 5 ML VIAL ONE (06:57)
[2022-08-01] MEDS ORDERED: Bupivacaine PF 0.5% 30 ML VIAL ONE (06:57)
[2022-08-01] MEDS ORDERED: PROPOFOL 20 ML ONE (07:02)
[2022-08-01] MEDS ORDERED: Lidocaine 1% MPF 2 ML VIAL ONE (07:14)
[2022-08-01] MEDS ORDERED: CEFAZOLIN 2 GM VIAL ONE (07:14)
[2022-08-01] MEDS ORDERED: Sodium Chloride 0.9% 100 ML ONE (07:14)
[2022-08-01 07:47] LABS: #Basophils 0.1 thou/uL (0.0-0.2); #Eosinphils 0.1 thou/uL (0.0-0.7); #Lymphocytes 1.7 thou/uL (1.20-3.40); #Monocytes 0.5 thou/uL (0.11-0.59); #Neutrophils 4.1 thou/uL (1.40-6.50); %Basophils 1.1 % (0.0-1.0); %Eosinophils 1.4 % (0.0-10.0); %Lymphocytes 27.1 % (21.0-51.0); %Monocytes 7.4 % (0.0-10.0); Mean Corpuscular HGB CONC 33.1 g/dL (32.0-36.0); Mean Corpuscular Hemoglobin 30.6 pg (27.0-31.0); Mean Corpuscular Volume 92.5 fl (78.0-98.0); Mean Platelet Volume 6.9 fL (7.4-10.4); Platelet Count 250 10x3/uL (130-400); RBC Distribution Width 11.8 % (11.5-14.5); Red Blood Cell (RBC) Count 3.94 mill/uL (4.20-5.40); White Blood Cell (WBC) Count 6.4 10x3/uL (4.8-10.8)
[2022-08-01] MEDS ORDERED: ePHEDrine 50 MG/ML VIAL ONE (07:54)
[2022-08-01] MEDS ORDERED: Lidocaine 1% PF 5 ML VIAL ONE (07:54)
[2022-08-01] MEDS ORDERED: PROPOFOL 200 MG/20 ML VIAL ONE (07:54)
[2022-08-01] MEDS ORDERED: Ondansetron PF 4 MG/2 ML Vial ONE (07:54)
[2022-08-01] MEDS ORDERED: Dexamethasone 20 MG/5 ML VIAL ONE (07:54)
[2022-08-01 08:06] LABS: Anion Gap 12 mmol/L (10-20); BUN (Urea Nitrogen) 15 mg/dL (7.0-18.7); Calc. Creatinine Clearance 93 mL/min (70-130); Calcium 8.7 mg/dL (7.8-10.44); Carbon Dioxide 21 mmol/L (22-29); Chloride 110 mmol/L (98-107); Estimated GFR 100; Glucose 91 mg/dL (70-105); Potassium 3.6 mmol/L (3.5-5.1); Sodium 139 mmol/L (136-145)
[2022-08-01] MEDS ORDERED: Fentanyl 100 MCG/2 ML VIAL ONE ×2 (09:05→09:42)
[2022-08-01] MEDS ORDERED: Ketorolac Tromethamine 30 MG/ML VIAL ONE (09:33)
== END 2022-08-01 11:50 | disposition home or self-care (01) ==
LOC: SDC 05:49
PROVIDERS: ATTEND Orthopaedic Surgery
PROC: 0SBC4ZZ Excision of Right Knee Joint, Percutaneous Endoscopic Approach (ICD-10-PCS; principal; 2022-08-01)
DX: S83.231A Complex tear of medial meniscus, current injury, right knee, initial encounter (principal); M94.261 Chondromalacia, right knee; K50.90 Crohn's disease, unspecified, without complications; Z79.620 Long term (current) use of immunosuppressive biologic; Z79.899 Other long term (current) drug therapy; Z88.8 Allergy status to other drugs, medicaments and biological substances; X50.1XXA Overexertion from prolonged static or awkward postures, initial encounter
CPT/HCPCS: 36415; 80048; 85025; J1885; J2001; J2704; J3010; J3490; S0020